=== PATIENT | female | born 1940 | race Caucasian/White ===

== ENCOUNTER 2017-01-11 16:53 | Inpatient (IN) | payer MEDICARE ==
[2017-01-12] MEDS ORDERED: Senokot S 8.6-50 MG TAB PO PRN ×2 (01:05→07:39)
[2017-01-12 05:18] LABS: Glucose 123 mg/dL (83-110)
[2017-01-12 05:29] LABS: INR-International Normal Ratio 1.2; Prothrombin Time 15.9 SEC (12.0-14.7)
[2017-01-12 05:47] LABS: Hemoglobin 8.7 g/dL (12.0-16.0); Platelet Count 119 thou/uL (130-400)
[2017-01-12] MEDS: Ipratropium Bromide 2.5 ml Neb NEB SCH ×4 (06:10→23:29)
[2017-01-12] MEDS ORDERED: Mometasone/Formoterol 60 PUFF AER INH SCH (07:00)
[2017-01-12] MEDS ORDERED: Potassium Chloride 20 MEQ TAB PO SCH (08:00)
[2017-01-12] MEDS ORDERED: Dextrose 5% in Water 1,000 ML IV PRN (08:18)
[2017-01-12] MEDS ORDERED: Insulin Regular 300 UNITS/3 ML VIAL SC PRN ×2 (08:18)
[2017-01-12] MEDS ORDERED: Dextrose 50% Abboject 50 ML SYRINGE SLOW IVP PRN (08:18)
[2017-01-12] MEDS: glipiZIDE 5 MG TAB PO SCH (08:22)
[2017-01-12] MEDS: Famotidine 20 MG TAB PO SCH ×2 (08:23→22:05)
[2017-01-12] MEDS: Docusate 100 MG CAP PO SCH (08:23)
[2017-01-12] MEDS: Furosemide 40 MG TAB PO SCH (08:23)
[2017-01-12] MEDS: Potassium Chloride 20 MEQ TAB PO SCH (08:24)
[2017-01-12] MEDS: Clopidogrel Bisulfate 75 MG TAB PO SCH (08:26)
[2017-01-12] MEDS ORDERED: Furosemide 40 MG TAB PO SCH (09:00)
[2017-01-12] MEDS ORDERED: NPH, Human Insulin Isophane 300 UNIT/3 ML VIAL SC SCH (09:00)
[2017-01-12] MEDS ORDERED: Non-Formulary Item 1 EACH (Fluticasone/Salmeterol [Advair Diskus 250/50] 2 INH) IH SCH (09:00)
[2017-01-12] MEDS ORDERED: Famotidine 20 MG TAB PO SCH (09:00)
[2017-01-12] MEDS ORDERED: Non-Formulary Item 1 EACH (Docusate Sodium [Docusate Sodium] 100 MG) PO SCH (09:00)
[2017-01-12] MEDS ORDERED: Non-Formulary Item 1 EACH (Cholecalciferol (Vitamin D3) [Vitamin D] 2,000 UNIT) PO SCH (09:00)
[2017-01-12] MEDS ORDERED: Spiriva 18 MCG CAP (Box of 5 Caps) INH SCH (09:00)
[2017-01-12] MEDS: traMADol HCl 50 MG TAB PO PRN (13:19)
[2017-01-12] MEDS: NPH, Human Insulin Isophane 300 UNIT/3 ML VIAL SC SCH (17:21)
[2017-01-12] MEDS: Warfarin Sodium 1 MG TAB PO SCH (17:55)
[2017-01-12] MEDS: Mometasone/Formoterol 60 PUFF AER INH SCH (19:32)
[2017-01-13] MEDS: Ipratropium Bromide 2.5 ml Neb NEB SCH ×4 (05:58→22:59)
[2017-01-13] MEDS: Mometasone/Formoterol 60 PUFF AER INH SCH ×2 (06:00→18:33)
[2017-01-13 06:02] LABS: INR-International Normal Ratio 1.1; Prothrombin Time 14.9 SEC (12.0-14.7)
[2017-01-13] MEDS: glipiZIDE 5 MG TAB PO SCH (09:09)
[2017-01-13] MEDS: NPH, Human Insulin Isophane 300 UNIT/3 ML VIAL SC SCH ×2 (09:17→17:26)
[2017-01-13] MEDS: Famotidine 20 MG TAB PO SCH ×2 (09:18→21:15)
[2017-01-13] MEDS: Furosemide 40 MG TAB PO SCH (09:18)
[2017-01-13] MEDS: Docusate 100 MG CAP PO SCH (09:19)
[2017-01-13] MEDS: Potassium Chloride 20 MEQ TAB PO SCH (09:19)
[2017-01-13] MEDS: Clopidogrel Bisulfate 75 MG TAB PO SCH (09:20)
[2017-01-13] MEDS ORDERED: Warfarin Sodium 3 MG TAB PO SCH (17:00)
[2017-01-13] MEDS ORDERED: Warfarin Sodium 1 MG TAB PO SCH (17:00)
[2017-01-13] MEDS: Acetaminophen 325 MG TAB PO PRN (21:14)
[2017-01-13] MEDS: diphenhydrAMINE HCl 25 MG CAP PO PRN (21:15)
[2017-01-14] MEDS: Mometasone/Formoterol 60 PUFF AER INH SCH ×2 (06:09→17:56)
[2017-01-14] MEDS: Ipratropium Bromide 2.5 ml Neb NEB SCH ×4 (06:10→23:31)
[2017-01-14 06:28] LABS: INR-International Normal Ratio 1.2; Prothrombin Time 15.6 SEC (12.0-14.7)
[2017-01-14 06:45] LABS: Hemoglobin 8.9 g/dL (12.0-16.0); Platelet Count 122 thou/uL (130-400)
[2017-01-14] MEDS: NPH, Human Insulin Isophane 300 UNIT/3 ML VIAL SC SCH ×2 (09:12→17:40)
[2017-01-14] MEDS: Potassium Chloride 20 MEQ TAB PO SCH (09:13)
[2017-01-14] MEDS: Docusate 100 MG CAP PO SCH (09:13)
[2017-01-14] MEDS: glipiZIDE 5 MG TAB PO SCH (09:14)
[2017-01-14] MEDS: Clopidogrel Bisulfate 75 MG TAB PO SCH (09:14)
[2017-01-14] MEDS: Furosemide 40 MG TAB PO SCH (09:14)
[2017-01-14] MEDS: Famotidine 20 MG TAB PO SCH ×2 (09:14→20:32)
[2017-01-14] MEDS: traMADol HCl 50 MG TAB PO PRN (10:56)
[2017-01-14] MEDS: Warfarin Sodium 1 MG TAB PO SCH (17:46)
[2017-01-14] MEDS ORDERED: WARFARIN SODIUM 1.5 MG PO SCH (18:00)
[2017-01-14] MEDS: diphenhydrAMINE HCl 25 MG CAP PO PRN (20:31)
[2017-01-14] MEDS: Acetaminophen 325 MG TAB PO PRN (20:32)
[2017-01-15] MEDS: Mometasone/Formoterol 60 PUFF AER INH SCH ×2 (05:43→18:47)
[2017-01-15] MEDS: Ipratropium Bromide 2.5 ml Neb NEB SCH ×3 (05:45→17:24)
[2017-01-15 06:28] LABS: INR-International Normal Ratio 1.1; Prothrombin Time 14.4 SEC (12.0-14.7)
[2017-01-15] MEDS: NPH, Human Insulin Isophane 300 UNIT/3 ML VIAL SC SCH ×2 (08:18→17:29)
[2017-01-15] MEDS: Clopidogrel Bisulfate 75 MG TAB PO SCH (08:23)
[2017-01-15] MEDS: Furosemide 40 MG TAB PO SCH (08:24)
[2017-01-15] MEDS: Docusate 100 MG CAP PO SCH (08:24)
[2017-01-15] MEDS: Famotidine 20 MG TAB PO SCH ×2 (08:24→21:07)
[2017-01-15] MEDS: Potassium Chloride 20 MEQ TAB PO SCH (08:25)
[2017-01-15] MEDS: glipiZIDE 5 MG TAB PO SCH (08:25)
[2017-01-15] MEDS: Warfarin Sodium 3 MG TAB PO SCH (17:19)
[2017-01-15] MEDS: diphenhydrAMINE HCl 25 MG CAP PO PRN (21:07)
[2017-01-15] MEDS: Acetaminophen 325 MG TAB PO PRN (21:07)
[2017-01-16] MEDS: Ipratropium Bromide 2.5 ml Neb NEB SCH ×5 (00:23→23:51)
[2017-01-16] MEDS: Mometasone/Formoterol 60 PUFF AER INH SCH ×2 (05:57→18:30)
[2017-01-16 06:27] LABS: INR-International Normal Ratio 1.2; Prothrombin Time 15.8 SEC (12.0-14.7)
[2017-01-16 06:32] LABS: Hemoglobin 8.7 g/dL (12.0-16.0); Platelet Count 133 thou/uL (130-400)
[2017-01-16] MEDS: NPH, Human Insulin Isophane 300 UNIT/3 ML VIAL SC SCH ×2 (08:33→18:29)
[2017-01-16] MEDS: Potassium Chloride 20 MEQ TAB PO SCH (08:36)
[2017-01-16] MEDS: Clopidogrel Bisulfate 75 MG TAB PO SCH (08:37)
[2017-01-16] MEDS: Famotidine 20 MG TAB PO SCH ×2 (08:37→20:33)
[2017-01-16] MEDS: Furosemide 40 MG TAB PO SCH (08:38)
[2017-01-16] MEDS: Docusate 100 MG CAP PO SCH (08:38)
[2017-01-16] MEDS: traMADol HCl 50 MG TAB PO PRN (09:17)
[2017-01-16] MEDS ORDERED: Loperamide HCl 2 MG CAP PO PRN (13:54)
[2017-01-16 16:44] LABS: Red Blood Cell (RBC) Count 3.31 mill/uL (4.20-5.40)
[2017-01-16] MEDS: Warfarin Sodium 3 MG TAB PO SCH (17:24)
[2017-01-16] MEDS: Acetaminophen 325 MG TAB PO PRN (20:33)
[2017-01-16] MEDS: diphenhydrAMINE HCl 25 MG CAP PO PRN (20:33)
[2017-01-16] MEDS: Loperamide HCl 2 MG CAP PO PRN (20:34)
[2017-01-17] MEDS: traMADol HCl 50 MG TAB PO PRN (02:37)
[2017-01-17] MEDS: Loperamide HCl 2 MG CAP PO PRN ×2 (02:38→09:22)
[2017-01-17] MEDS: Mometasone/Formoterol 60 PUFF AER INH SCH ×2 (05:48→18:15)
[2017-01-17] MEDS: Ipratropium Bromide 2.5 ml Neb NEB SCH ×4 (05:53→23:13)
[2017-01-17 06:11] LABS: INR-International Normal Ratio 1.2; Prothrombin Time 15.7 SEC (12.0-14.7)
[2017-01-17 06:23] LABS: #Basophils 0.1 thou/uL (0.0-0.2); #Eosinphils 0.1 thou/uL (0.0-0.7); #Lymphocytes 0.8 thou/uL (1.20-3.40); #Monocytes 0.5 thou/uL (0.11-0.59); %Basophils 1.4 % (0.0-1.0); %Eosinophils 2.6 % (0.0-10.0); %Lymphocytes 14.9 % (21.0-51.0); %Monocytes 9.4 % (0.0-10.0); %Neutrophils 71.8 % (42.0-75.0); Hemoglobin 9.2 g/dL (12.0-16.0); Mean Corpuscular Hemoglobin 27.6 pg (27.0-31.0); Mean Corpuscular Volume 92.1 fl (81.0-99.0); Mean Platelet Volume 6.9 fL (7.4-10.4); Platelet Count 139 thou/uL (130-400); RBC Distribution Width 16.6 % (11.5-14.5); Red Blood Cell (RBC) Count 3.31 mill/uL (4.20-5.40); White Blood Cell (WBC) Count 5.6 thou/uL (4.8-10.8)
[2017-01-17 07:02] LABS: ALT (SGPT) 6 U/L (0-55); AST (SGOT) 14 U/L (5-34); Albumin 3.1 g/dL (3.4-4.8); Alkaline Phosphatase 69 U/L (40-150); Anion Gap 12 mmol/L (10-20); BUN (Urea Nitrogen) 21 mg/dL (9.8-20.1); Bilirubin, Total 1.1 mg/dL (0.2-1.2); Calc. Creatinine Clearance 66 mL/min (70-130); Calcium 9.5 mg/dL (7.8-10.44); Carbon Dioxide 22 mmol/L (23-31); Chloride 114 mmol/L (98-107); Estimated GFR-MDRD 43; Globulin 2.8 g/dL (2.4-3.5); Glucose 93 mg/dL (83-110); Potassium 4.1 mmol/L (3.5-5.1); Protein, Total 5.9 g/dL (5.8-8.1); Sodium 144 mmol/L (136-145)
[2017-01-17] MEDS: NPH, Human Insulin Isophane 300 UNIT/3 ML VIAL SC SCH ×2 (08:47→16:42)
[2017-01-17] MEDS: Docusate 100 MG CAP PO SCH (08:49)
[2017-01-17] MEDS: Clopidogrel Bisulfate 75 MG TAB PO SCH (08:50)
[2017-01-17] MEDS: Furosemide 40 MG TAB PO SCH (08:50)
[2017-01-17] MEDS: Potassium Chloride 20 MEQ TAB PO SCH (08:51)
[2017-01-17] MEDS: Famotidine 20 MG TAB PO SCH ×2 (09:23→21:55)
[2017-01-17 12:29] VITALS: BMI 35.9
[2017-01-17] MEDS: Warfarin Sodium 3 MG TAB PO SCH (17:15)
[2017-01-17] MEDS: metroNIDAZOLE 250 MG TAB PO SCH (21:55)
[2017-01-17] MEDS: diphenhydrAMINE HCl 25 MG CAP PO PRN (23:18)
[2017-01-18] MEDS: Ipratropium Bromide 2.5 ml Neb NEB SCH ×3 (06:21→17:28)
[2017-01-18] MEDS: metroNIDAZOLE 250 MG TAB PO SCH ×3 (06:21→22:05)
[2017-01-18] MEDS: Mometasone/Formoterol 60 PUFF AER INH SCH ×2 (06:24→17:29)
[2017-01-18 06:27] LABS: Hemoglobin 9.1 g/dL (12.0-16.0); INR-International Normal Ratio 1.4; Platelet Count 134 thou/uL (130-400); Prothrombin Time 17.5 SEC (12.0-14.7)
[2017-01-18] MEDS: Potassium Chloride 20 MEQ TAB PO SCH (09:00)
[2017-01-18] MEDS: Clopidogrel Bisulfate 75 MG TAB PO SCH (10:08)
[2017-01-18] MEDS: Famotidine 20 MG TAB PO SCH ×2 (10:08→22:05)
[2017-01-18] MEDS: Docusate 100 MG CAP PO SCH (10:09)
[2017-01-18] MEDS: Furosemide 40 MG TAB PO SCH (10:09)
[2017-01-18] MEDS: NPH, Human Insulin Isophane 300 UNIT/3 ML VIAL SC SCH ×2 (12:36→17:27)
[2017-01-18] MEDS: Warfarin Sodium 3 MG TAB PO SCH (17:27)
[2017-01-19] MEDS: Ipratropium Bromide 2.5 ml Neb NEB SCH ×5 (00:12→23:46)
[2017-01-19] MEDS: metroNIDAZOLE 250 MG TAB PO SCH ×3 (06:17→21:02)
[2017-01-19] MEDS: Mometasone/Formoterol 60 PUFF AER INH SCH ×2 (06:18→18:59)
[2017-01-19 06:38] LABS: INR-International Normal Ratio 1.4; Prothrombin Time 17.4 SEC (12.0-14.7)
[2017-01-19 09:45] LABS: Anion Gap 14 mmol/L (10-20); BUN (Urea Nitrogen) 22 mg/dL (9.8-20.1); Calc. Creatinine Clearance 58 mL/min (70-130); Calcium 9.5 mg/dL (7.8-10.44); Carbon Dioxide 17 mmol/L (23-31); Chloride 115 mmol/L (98-107); Estimated GFR-MDRD 37; Glucose 126 mg/dL (83-110); Potassium 4.2 mmol/L (3.5-5.1); Sodium 142 mmol/L (136-145)
[2017-01-19 10:06] LABS: Platelet Count 111 thou/uL (130-400); White Blood Cell (WBC) Count 5.7 thou/uL (4.8-10.8)
[2017-01-19] MEDS: Famotidine 20 MG TAB PO SCH ×2 (10:12→21:02)
[2017-01-19] MEDS: Clopidogrel Bisulfate 75 MG TAB PO SCH (10:12)
[2017-01-19] MEDS: Furosemide 40 MG TAB PO SCH (10:13)
[2017-01-19] MEDS: Potassium Chloride 20 MEQ TAB PO SCH (10:13)
[2017-01-19 10:17] LABS: Hemoglobin 8.9 g/dL (12.0-16.0); Mean Corpuscular HGB CONC 31.1 g/dL (32.0-36.0); Mean Corpuscular Hemoglobin 28.2 pg (27.0-31.0); Mean Corpuscular Volume 90.8 fl (81.0-99.0); Mean Platelet Volume 5.9 fL (7.4-10.4); RBC Distribution Width 16.3 % (11.5-14.5); Red Blood Cell (RBC) Count 3.14 mill/uL (4.20-5.40)
[2017-01-19 10:18] LABS: #Basophils 0.1 thou/uL (0.0-0.2); #Eosinphils 0.2 thou/uL (0.0-0.7); #Monocytes 0.5 thou/uL (0.11-0.59); #Neutrophils 3.4 thou/uL (1.40-6.50); %Eosinophils 3.6 % (0.0-10.0); %Lymphocytes 19.3 % (21.0-51.0); %Monocytes 9.5 % (0.0-10.0); %Neutrophils 66.6 % (42.0-75.0)
[2017-01-19 10:30] LABS: Anisocytosis SLIGHT = 6-15 cells (100X) (0-5/hpf); MDiff Complete? YES; PLT Morphology Comment Appears Decreased
[2017-01-19] MEDS: NPH, Human Insulin Isophane 300 UNIT/3 ML VIAL SC SCH ×2 (11:20→18:59)
[2017-01-19] MEDS: Docusate 100 MG CAP PO SCH (11:21)
[2017-01-19] MEDS: Warfarin Sodium 2 MG TAB PO SCH (17:42)
[2017-01-19] MEDS: diphenhydrAMINE HCl 25 MG CAP PO PRN (21:02)
[2017-01-20 05:36] LABS: Anion Gap 10 mmol/L (10-20); BUN (Urea Nitrogen) 24 mg/dL (9.8-20.1); Calc. Creatinine Clearance 62 mL/min (70-130); Calcium 9.5 mg/dL (7.8-10.44); Carbon Dioxide 21 mmol/L (23-31); Chloride 113 mmol/L (98-107); Estimated GFR-MDRD 40; Glucose 102 mg/dL (83-110); Potassium 4.2 mmol/L (3.5-5.1); Sodium 140 mmol/L (136-145)
[2017-01-20 05:45] LABS: INR-International Normal Ratio 1.7; Prothrombin Time 20.2 SEC (12.0-14.7)
[2017-01-20 05:54] LABS: Platelet Count 117 thou/uL (130-400)
[2017-01-20] MEDS: metroNIDAZOLE 250 MG TAB PO SCH ×3 (06:11→23:02)
[2017-01-20] MEDS: Ipratropium Bromide 2.5 ml Neb NEB SCH ×4 (06:12→23:02)
[2017-01-20] MEDS: Mometasone/Formoterol 60 PUFF AER INH SCH ×2 (06:16→20:51)
[2017-01-20] MEDS: NPH, Human Insulin Isophane 300 UNIT/3 ML VIAL SC SCH ×2 (08:49→17:38)
[2017-01-20] MEDS: Furosemide 40 MG TAB PO SCH (08:51)
[2017-01-20] MEDS: Potassium Chloride 20 MEQ TAB PO SCH (08:51)
[2017-01-20] MEDS: Clopidogrel Bisulfate 75 MG TAB PO SCH (08:51)
[2017-01-20] MEDS: Docusate 100 MG CAP PO SCH (08:51)
[2017-01-20] MEDS: Famotidine 20 MG TAB PO SCH ×2 (08:51→20:52)
[2017-01-20] MEDS: Warfarin Sodium 3 MG TAB PO SCH (17:38)
[2017-01-21 05:33] LABS: INR-International Normal Ratio 1.6; Prothrombin Time 19.3 SEC (12.0-14.7)
[2017-01-21] MEDS: Ipratropium Bromide 2.5 ml Neb NEB SCH ×4 (05:53→23:49)
[2017-01-21] MEDS: metroNIDAZOLE 250 MG TAB PO SCH ×3 (05:55→21:43)
[2017-01-21] MEDS: Mometasone/Formoterol 60 PUFF AER INH SCH ×2 (06:00→21:44)
[2017-01-21] MEDS: NPH, Human Insulin Isophane 300 UNIT/3 ML VIAL SC SCH ×2 (08:46→17:38)
[2017-01-21] MEDS: Docusate 100 MG CAP PO SCH (08:47)
[2017-01-21] MEDS: Clopidogrel Bisulfate 75 MG TAB PO SCH (08:47)
[2017-01-21] MEDS: Furosemide 40 MG TAB PO SCH (08:47)
[2017-01-21] MEDS: Famotidine 20 MG TAB PO SCH ×2 (08:47→21:43)
[2017-01-21] MEDS: Potassium Chloride 20 MEQ TAB PO SCH (08:47)
[2017-01-21] MEDS: traMADol HCl 50 MG TAB PO PRN (10:14)
[2017-01-21] MEDS: Warfarin Sodium 3 MG TAB PO SCH (17:37)
[2017-01-22] MEDS: diphenhydrAMINE HCl 25 MG CAP PO PRN ×2 (02:45→23:39)
[2017-01-22] MEDS: Ipratropium Bromide 2.5 ml Neb NEB SCH ×4 (05:07→23:39)
[2017-01-22] MEDS: metroNIDAZOLE 250 MG TAB PO SCH ×3 (05:07→21:01)
[2017-01-22 05:40] LABS: INR-International Normal Ratio 1.6; Prothrombin Time 19.3 SEC (12.0-14.7)
[2017-01-22] MEDS: Mometasone/Formoterol 60 PUFF AER INH SCH ×2 (07:13→19:16)
[2017-01-22] MEDS: Clopidogrel Bisulfate 75 MG TAB PO SCH (09:19)
[2017-01-22] MEDS: Famotidine 20 MG TAB PO SCH ×2 (09:19→20:59)
[2017-01-22] MEDS: Furosemide 40 MG TAB PO SCH (09:19)
[2017-01-22] MEDS: Potassium Chloride 20 MEQ TAB PO SCH (09:19)
[2017-01-22] MEDS: Docusate 100 MG CAP PO SCH (09:20)
[2017-01-22] MEDS: NPH, Human Insulin Isophane 300 UNIT/3 ML VIAL SC SCH ×2 (09:20→17:45)
[2017-01-22] MEDS: Warfarin Sodium 2 MG TAB PO SCH (17:23)
[2017-01-23 05:17] LABS: Hemoglobin 9.6 g/dL (12.0-16.0); Platelet Count 120 thou/uL (130-400)
[2017-01-23 05:43] LABS: INR-International Normal Ratio 1.6; Prothrombin Time 18.8 SEC (12.0-14.7)
[2017-01-23] MEDS: Ipratropium Bromide 2.5 ml Neb NEB SCH ×4 (06:05→23:25)
[2017-01-23] MEDS: metroNIDAZOLE 250 MG TAB PO SCH ×3 (06:07→23:24)
[2017-01-23] MEDS: Mometasone/Formoterol 60 PUFF AER INH SCH ×2 (06:08→19:00)
[2017-01-23] MEDS: NPH, Human Insulin Isophane 300 UNIT/3 ML VIAL SC SCH ×2 (09:41→18:56)
[2017-01-23] MEDS: Furosemide 40 MG TAB PO SCH (09:42)
[2017-01-23] MEDS: Clopidogrel Bisulfate 75 MG TAB PO SCH (09:43)
[2017-01-23] MEDS: Potassium Chloride 20 MEQ TAB PO SCH (09:43)
[2017-01-23] MEDS: Famotidine 20 MG TAB PO SCH ×2 (09:43→20:41)
[2017-01-23] MEDS: Docusate 100 MG CAP PO SCH (09:44)
[2017-01-23] MEDS: Warfarin Sodium 2 MG TAB PO SCH (18:57)
[2017-01-24] MEDS: diphenhydrAMINE HCl 25 MG CAP PO PRN (00:44)
[2017-01-24] MEDS: Ipratropium Bromide 2.5 ml Neb NEB SCH ×3 (05:14→17:21)
[2017-01-24] MEDS: metroNIDAZOLE 250 MG TAB PO SCH ×3 (05:16→22:20)
[2017-01-24 05:41] LABS: INR-International Normal Ratio 1.8; Prothrombin Time 21.2 SEC (12.0-14.7)
[2017-01-24] MEDS: Mometasone/Formoterol 60 PUFF AER INH SCH ×2 (06:20→19:29)
[2017-01-24] MEDS: NPH, Human Insulin Isophane 300 UNIT/3 ML VIAL SC SCH ×2 (09:22→19:30)
[2017-01-24] MEDS: Clopidogrel Bisulfate 75 MG TAB PO SCH (09:23)
[2017-01-24] MEDS: Docusate 100 MG CAP PO SCH ×2 (09:23→10:05)
[2017-01-24] MEDS: Potassium Chloride 20 MEQ TAB PO SCH (09:23)
[2017-01-24] MEDS: Famotidine 20 MG TAB PO SCH ×2 (09:24→22:20)
[2017-01-24] MEDS: Furosemide 40 MG TAB PO SCH ×2 (09:24→10:05)
[2017-01-24] MEDS: Warfarin Sodium 2 MG TAB PO SCH (16:48)
[2017-01-25] MEDS: Ipratropium Bromide 2.5 ml Neb NEB SCH ×5 (00:46→23:19)
[2017-01-25] MEDS: diphenhydrAMINE HCl 25 MG CAP PO PRN ×2 (01:23→23:21)
[2017-01-25 05:57] LABS: Prothrombin Time 23.1 SEC (12.0-14.7)
[2017-01-25] MEDS: metroNIDAZOLE 250 MG TAB PO SCH ×3 (06:02→22:00)
[2017-01-25] MEDS: Mometasone/Formoterol 60 PUFF AER INH SCH ×2 (06:03→19:05)
[2017-01-25 06:13] LABS: Hemoglobin 9.5 g/dL (12.0-16.0); Platelet Count 117 thou/uL (130-400)
[2017-01-25] MEDS: Potassium Chloride 20 MEQ TAB PO SCH (10:15)
[2017-01-25] MEDS: Clopidogrel Bisulfate 75 MG TAB PO SCH (10:15)
[2017-01-25] MEDS: Furosemide 40 MG TAB PO SCH (10:15)
[2017-01-25] MEDS: NPH, Human Insulin Isophane 300 UNIT/3 ML VIAL SC SCH ×2 (10:16→18:26)
[2017-01-25] MEDS: Famotidine 20 MG TAB PO SCH ×2 (10:16→21:59)
[2017-01-25] MEDS: Docusate 100 MG CAP PO SCH (12:36)
[2017-01-25] MEDS ORDERED: Warfarin Sodium 3 MG TAB PO SCH (14:41)
[2017-01-25] MEDS: Warfarin Sodium 3 MG TAB PO SCH (18:14)
[2017-01-25] MEDS: Acetaminophen 325 MG TAB PO PRN (23:21)
[2017-01-26 04:42] LABS: INR-International Normal Ratio 2.3; Prothrombin Time 24.9 SEC (12.0-14.7)
[2017-01-26] MEDS: metroNIDAZOLE 250 MG TAB PO SCH ×3 (06:36→22:10)
[2017-01-26] MEDS: Mometasone/Formoterol 60 PUFF AER INH SCH ×2 (06:37→19:24)
[2017-01-26] MEDS: Ipratropium Bromide 2.5 ml Neb NEB SCH ×3 (06:37→19:23)
[2017-01-26] MEDS: Potassium Chloride 20 MEQ TAB PO SCH (09:50)
[2017-01-26] MEDS: NPH, Human Insulin Isophane 300 UNIT/3 ML VIAL SC SCH ×2 (09:54→16:44)
[2017-01-26] MEDS: Docusate 100 MG CAP PO SCH (09:57)
[2017-01-26] MEDS: Clopidogrel Bisulfate 75 MG TAB PO SCH (09:57)
[2017-01-26] MEDS: Famotidine 20 MG TAB PO SCH ×2 (09:58→22:10)
[2017-01-26] MEDS: Furosemide 40 MG TAB PO SCH (09:58)
--- NOTE | 2017-01-26 15:55 | ULT ---
SOFT TISSUE ULTRASOUND OF THE RIGHT LOWER EXTREMITY: Date: 01/26/17 CLINICAL HISTORY: Hematoma. FINDINGS: Within the region of concern, there is a prominent region of altered echotexture within the soft tis kavita of the proximal right lower extremity. The length of the finding makes discrete measurement acqu isition difficult on the basis of this exam. No significant interval flow. IMPRESSION: Sonographic finding most consistent with a large, organizing hematoma of the right lower extremity. Correlate with physical exam and clinical assessment. Imaging follow-up may prove useful for documen tation of resolution. POS: OFF
[2017-01-26] MEDS: Warfarin Sodium 2 MG TAB PO SCH (16:41)
[2017-01-27] MEDS: Ipratropium Bromide 2.5 ml Neb NEB SCH ×4 (00:23→17:22)
[2017-01-27] MEDS: diphenhydrAMINE HCl 25 MG CAP PO PRN ×2 (00:38→21:26)
[2017-01-27] MEDS: Acetaminophen 325 MG TAB PO PRN ×2 (00:38→21:25)
[2017-01-27] MEDS: metroNIDAZOLE 250 MG TAB PO SCH ×3 (05:57→21:25)
[2017-01-27] MEDS: Mometasone/Formoterol 60 PUFF AER INH SCH ×2 (06:01→17:23)
[2017-01-27 06:51] LABS: INR-International Normal Ratio 2.5; Prothrombin Time 27.1 SEC (12.0-14.7)
[2017-01-27 06:54] LABS: Hemoglobin 9.6 g/dL (12.0-16.0); Platelet Count 131 thou/uL (130-400)
[2017-01-27] MEDS: Potassium Chloride 20 MEQ TAB PO SCH (10:10)
[2017-01-27] MEDS: Clopidogrel Bisulfate 75 MG TAB PO SCH (10:10)
[2017-01-27] MEDS: Furosemide 40 MG TAB PO SCH (10:10)
[2017-01-27] MEDS: Docusate 100 MG CAP PO SCH (10:11)
[2017-01-27] MEDS: Famotidine 20 MG TAB PO SCH ×2 (10:11→21:26)
[2017-01-27] MEDS: NPH, Human Insulin Isophane 300 UNIT/3 ML VIAL SC SCH ×2 (10:12→15:55)
[2017-01-27] MEDS: Warfarin Sodium 3 MG TAB PO SCH (15:47)
[2017-01-28] MEDS: Ipratropium Bromide 2.5 ml Neb NEB SCH ×5 (00:45→23:18)
[2017-01-28 06:30] LABS: INR-International Normal Ratio 3.3; Prothrombin Time 32.9 SEC (12.0-14.7)
[2017-01-28] MEDS: Mometasone/Formoterol 60 PUFF AER INH SCH ×2 (07:01→19:09)
[2017-01-28] MEDS: NPH, Human Insulin Isophane 300 UNIT/3 ML VIAL SC SCH ×2 (09:34→17:11)
[2017-01-28] MEDS: Clopidogrel Bisulfate 75 MG TAB PO SCH (09:43)
[2017-01-28] MEDS: Docusate 100 MG CAP PO SCH (09:44)
[2017-01-28] MEDS: Furosemide 40 MG TAB PO SCH (09:44)
[2017-01-28] MEDS: Famotidine 20 MG TAB PO SCH ×2 (09:44→21:07)
[2017-01-28] MEDS: Potassium Chloride 20 MEQ TAB PO SCH (09:45)
[2017-01-28] MEDS: Warfarin Sodium 3 MG TAB PO SCH (17:15)
[2017-01-28] MEDS: diphenhydrAMINE HCl 25 MG CAP PO PRN (23:02)
[2017-01-28] MEDS: Acetaminophen 325 MG TAB PO PRN (23:02)
[2017-01-29] MEDS: Ipratropium Bromide 2.5 ml Neb NEB SCH ×4 (06:37→23:28)
[2017-01-29 06:38] LABS: Hemoglobin 10.1 g/dL (12.0-16.0); Platelet Count 130 thou/uL (130-400)
[2017-01-29] MEDS: Mometasone/Formoterol 60 PUFF AER INH SCH ×2 (06:38→18:05)
[2017-01-29 06:41] LABS: INR-International Normal Ratio 3.1; Prothrombin Time 31.2 SEC (12.0-14.7)
[2017-01-29] MEDS: NPH, Human Insulin Isophane 300 UNIT/3 ML VIAL SC SCH ×2 (10:35→18:03)
[2017-01-29] MEDS: Clopidogrel Bisulfate 75 MG TAB PO SCH (10:36)
[2017-01-29] MEDS: Famotidine 20 MG TAB PO SCH ×2 (10:36→21:13)
[2017-01-29] MEDS: Furosemide 40 MG TAB PO SCH (10:37)
[2017-01-29] MEDS: Potassium Chloride 20 MEQ TAB PO SCH (10:37)
[2017-01-29] MEDS: Docusate 100 MG CAP PO SCH (10:38)
[2017-01-29] MEDS: Warfarin Sodium 3 MG TAB PO SCH (18:04)
[2017-01-29] MEDS: Acetaminophen 325 MG TAB PO PRN (23:46)
[2017-01-29] MEDS: diphenhydrAMINE HCl 25 MG CAP PO PRN (23:47)
[2017-01-30] MEDS: Ipratropium Bromide 2.5 ml Neb NEB SCH ×3 (06:25→17:36)
[2017-01-30] MEDS: Mometasone/Formoterol 60 PUFF AER INH SCH ×2 (06:28→17:37)
[2017-01-30 06:30] LABS: INR-International Normal Ratio 3.6; Prothrombin Time 35.1 SEC (12.0-14.7)
[2017-01-30] MEDS: NPH, Human Insulin Isophane 300 UNIT/3 ML VIAL SC SCH ×2 (09:15→21:00)
[2017-01-30] MEDS: Furosemide 40 MG TAB PO SCH (09:15)
[2017-01-30] MEDS: Famotidine 20 MG TAB PO SCH ×2 (09:15→21:31)
[2017-01-30] MEDS: Clopidogrel Bisulfate 75 MG TAB PO SCH (09:16)
[2017-01-30] MEDS: Docusate 100 MG CAP PO SCH (09:16)
[2017-01-30] MEDS: Potassium Chloride 20 MEQ TAB PO SCH (09:16)
[2017-01-30] MEDS: diphenhydrAMINE HCl 25 MG CAP PO PRN (21:30)
[2017-01-30] MEDS: Acetaminophen 325 MG TAB PO PRN (21:30)
[2017-01-31] MEDS: Ipratropium Bromide 2.5 ml Neb NEB SCH ×2 (00:51→06:06)
[2017-01-31] MEDS: Mometasone/Formoterol 60 PUFF AER INH SCH (06:11)
[2017-01-31 06:15] VITALS: BP 124/58
[2017-01-31 06:38] LABS: INR-International Normal Ratio 3.1; Prothrombin Time 31.2 SEC (12.0-14.7)
[2017-01-31 06:41] LABS: Hemoglobin 10.3 g/dL (12.0-16.0); Platelet Count 144 thou/uL (130-400)
[2017-01-31] MEDS: Furosemide 40 MG TAB PO SCH (09:52)
[2017-01-31] MEDS: NPH, Human Insulin Isophane 300 UNIT/3 ML VIAL SC SCH (09:52)
[2017-01-31] MEDS: Famotidine 20 MG TAB PO SCH (09:52)
[2017-01-31] MEDS: Potassium Chloride 20 MEQ TAB PO SCH (09:52)
[2017-01-31] MEDS: Clopidogrel Bisulfate 75 MG TAB PO SCH (09:53)
[2017-01-31] MEDS: Docusate 100 MG CAP PO SCH (09:53)
[2017-01-31 15:35] VITALS: TEMP 97.5
[2017-01-31] MEDS ORDERED: Warfarin Sodium 3 MG TAB PO SCH (17:00)
[2017-02-03] MEDS ORDERED: Warfarin Sodium 2 MG TAB PO SCH (17:00)
== END 2017-01-31 13:45 | disposition home health service (06) | DRG 949 ==
LOC: BURMED 18:13
PROVIDERS: ADMIT Family Medicine; ATTEND Family Medicine
DX: Z48.812 Encounter for surgical aftercare following surgery on the circulatory system (principal); I97.638 Postprocedural hematoma of a circulatory system organ or structure following other circulatory system procedure; A04.7 Enterocolitis due to Clostridium difficile; J96.11 Chronic respiratory failure with hypoxia; N18.4 Chronic kidney disease, stage 4 (severe); I50.30 Unspecified diastolic (congestive) heart failure; Z95.2 Presence of prosthetic heart valve; Z79.01 Long term (current) use of anticoagulants; G47.33 Obstructive sleep apnea (adult) (pediatric); J44.9 Chronic obstructive pulmonary disease, unspecified; E04.1 Nontoxic single thyroid nodule; Z87.891 Personal history of nicotine dependence; I48.0 Paroxysmal atrial fibrillation; E11.22 Type 2 diabetes mellitus with diabetic chronic kidney disease; I12.9 Hypertensive chronic kidney disease with stage 1 through stage 4 chronic kidney disease, or unspecified chronic kidney disease; Y83.8 Other surgical procedures as the cause of abnormal reaction of the patient, or of later complication, without mention of misadventure at the time of the procedure
CPT/HCPCS: 36415; 36416; 76882; 80048; 80053; 82947; 85014; 85018; 85025; 85041; 85048; 85049; 85610; 87015; 87045; 87046; 87324; 87449; 87899; 94640; 94664; G8978-GP-CJ; G8979-GP-CI; G8987-GO-CL; G8988-GO-CJ; J1610; J1815; J7644

== ENCOUNTER 2017-05-27 16:17 | Outpatient (CLI) | payer MEDICARE ==
[2017-05-27 17:02] LABS: Bilirubin Negative (Negative); Blood, Urine Trace (Negative); Clarity Cloudy (Clear); Glucose, Urine (Dipstick) Negative (Negative); Leukocyte Small (Negative); Nitrite Negative (Negative); Protein, Urine (Dipstick) 30 mg/dL (Neg-Trace); Urobilinogen 0.2 mg/dL (0.2-1.0)
[2017-05-27 17:37] LABS: RBC/HPF 0-3 HPF (0-3)
[2017-05-27 17:38] LABS: Bacteria/HPF 3+ HPF (None Seen); Crystals/HPF None Seen HPF (Negative); Hyaline Casts/LPF NONE SEEN LPF (0-3 Hyaline); Other Casts/LPF None Seen LPF (0-3 Hyaline); Oval Fat Bodies/HPF None Seen HPF (None Seen); Renal Epithelial None Seen HPF (0-3); Sperm/HPF None Seen HPF (None Seen); Squamous Epithelial 0-3 HPF (0-3); Transitional Epithelial NONE SEEN HPF (0-3); Trichomonas/HPF None Seen HPF (None Seen); Yeast-All Forms None Seen HPF (None Seen)
== END 2017-05-27 16:18 ==
LOC: HPCALD 16:17
PROVIDERS: ATTEND Family Medicine
DX: R10.9 Unspecified abdominal pain (principal)
CPT/HCPCS: 81001; 87086

== ENCOUNTER 2017-06-30 13:25 | Outpatient (CLI) | payer MEDICARE ==
[2017-06-30 13:40] LABS: INR-International Normal Ratio 1.6
[2017-06-30 13:43] LABS: Hemoglobin A1c 5.1 % (4.0-6.0)
== END 2017-06-30 13:26 | disposition home or self-care (01) ==
LOC: BURLABSP 13:25
PROVIDERS: ATTEND Family Medicine
DX: E11.22 Type 2 diabetes mellitus with diabetic chronic kidney disease (principal); E03.9 Hypothyroidism, unspecified; I48.0 Paroxysmal atrial fibrillation
CPT/HCPCS: 83036; 84443; 85610

== ENCOUNTER 2017-08-05 11:43 | Outpatient (CLI) | payer MEDICARE ==
[2017-08-05 12:02] LABS: INR-International Normal Ratio 2.6; Prothrombin Time 29.1 SEC (12.0-14.7)
== END 2017-08-05 11:44 | disposition home or self-care (01) ==
LOC: BURLAB 11:43
PROVIDERS: ATTEND Family Medicine
DX: I48.91 Unspecified atrial fibrillation (principal)
CPT/HCPCS: 85610

== ENCOUNTER 2017-09-05 13:03 | Inpatient (IN) | payer MEDICARE ==
[2017-09-05] MEDS ORDERED: Milk Of Magnesia 30 ML UDCUP PO PRN (17:29)
[2017-09-05] MEDS ORDERED: Loperamide HCl 2 MG CAP PO PRN (17:29)
[2017-09-05] MEDS ORDERED: Mag-Al 1200 mg/1200 mg/30 ML UDCUP PO PRN (17:29)
[2017-09-05] MEDS ORDERED: Guaifenesin DM 100-10/5 ML UDCUP PO PRN (17:29)
[2017-09-05] MEDS ORDERED: Ondansetron ODT 4 MG TAB PO PRN (17:29)
[2017-09-05] MEDS ORDERED: Bisacodyl 10 MG SUPP PR PRN (17:29)
[2017-09-05] MEDS ORDERED: Dextrose 5% in Water 1,000 ML IV PRN (17:34)
[2017-09-05] MEDS ORDERED: Dextrose 50% Abboject 50 ML SYRINGE SLOW IVP PRN (17:34)
[2017-09-05] MEDS ORDERED: HumaLOG 300 UNITS/3 ML VIAL SC PRN (17:34)
[2017-09-05 18:05] LABS: #Eosinphils 0.3 thou/uL (0.0-0.7); #Lymphocytes 0.3 thou/uL (1.20-3.40); #Monocytes 0.6 thou/uL (0.11-0.59); #Neutrophils 5.9 thou/uL (1.40-6.50); %Basophils 0.4 % (0.0-1.0); %Eosinophils 4.7 % (0.0-10.0); %Lymphocytes 4.1 % (21.0-51.0); %Monocytes 8.7 % (0.0-10.0); %Neutrophils 82.1 % (42.0-75.0); Hemoglobin 11.7 g/dL (12.0-16.0); Mean Corpuscular HGB CONC 32.7 g/dL (32.0-36.0); Mean Corpuscular Hemoglobin 30.1 pg (27.0-31.0); Mean Corpuscular Volume 92.3 fl (81.0-99.0); Mean Platelet Volume 7.9 fL (7.4-10.4); PLT Morphology Comment PATIENT HISTORY OF LOW PLATELET COUNT; Platelet Count 93 thou/uL (130-400); RBC Distribution Width 13.9 % (11.5-14.5); Red Blood Cell (RBC) Count 3.88 mill/uL (4.20-5.40); White Blood Cell (WBC) Count 7.2 thou/uL (4.8-10.8)
[2017-09-05 18:12] LABS: INR-International Normal Ratio 1.6; Prothrombin Time 19.8 SEC (12.0-14.7)
[2017-09-05 18:21] LABS: ALT (SGPT) 35 U/L (8-55); AST (SGOT) 33 U/L (5-34); Albumin 3.6 g/dL (3.4-4.8); Alkaline Phosphatase 104 U/L (40-150); Anion Gap 14 mmol/L (10-20); BUN (Urea Nitrogen) 39 mg/dL (9.8-20.1); Bilirubin, Total 0.8 mg/dL (0.2-1.2); Calc. Creatinine Clearance 25 mL/min (70-130); Calcium 10.3 mg/dL (7.8-10.44); Carbon Dioxide 21 mmol/L (23-31); Chloride 106 mmol/L (98-107); Estimated GFR-MDRD 18; Globulin 3.1 g/dL (2.4-3.5); Glucose 143 mg/dL (83-110); Potassium 4.6 mmol/L (3.5-5.1); Protein, Total 6.7 g/dL (6.0-8.3); Sodium 136 mmol/L (136-145)
[2017-09-05 18:24] LABS: MDiff Complete? YES
[2017-09-05] MEDS ORDERED: Docusate 100 MG CAP PO PRN (18:27)
[2017-09-05] MEDS ORDERED: Lorazepam 0.5 MG TAB PO PRN (18:27)
[2017-09-05] MEDS ORDERED: diphenhydrAMINE 25 MG CAP PO PRN (18:27)
[2017-09-05 18:38] VITALS: BMI 29.6
[2017-09-05] MEDS: HumaLOG 300 UNITS/3 ML VIAL SC PRN (18:39)
[2017-09-05] MEDS: Vancomycin HCl 750 MG in Sodium Chloride 0.9% 250 ML 250 ML IVPB SCH (18:44)
[2017-09-05] MEDS: Vancomycin HCl 500 MG in Sodium Chloride 0.9% 100 ML IVPB SCH (18:45)
[2017-09-05] MEDS ORDERED: [UNRECOGNIZED DRUG - REMARK] IVPB PRN (18:51)
[2017-09-05 19:43] LABS: Bilirubin Negative (Negative); Blood, Urine Trace (Negative); Clarity Clear (Clear); Glucose, Urine (Dipstick) Negative (Negative); Leukocyte Negative (Negative); Nitrite Negative (Negative); Protein, Urine (Dipstick) Negative (Neg-Trace); Urobilinogen 0.2 mg/dL (0.2-1.0)
[2017-09-05 19:51] LABS: Bacteria/HPF 2+ HPF (None Seen); Crystals/HPF None Seen HPF (Negative); Hyaline Casts/LPF NONE SEEN LPF (0-3 Hyaline); Other Casts/LPF None Seen LPF (0-3 Hyaline); Oval Fat Bodies/HPF None Seen HPF (None Seen); RBC/HPF 0-3 HPF (0-3); Renal Epithelial None Seen HPF (0-3); Sperm/HPF None Seen HPF (None Seen); Squamous Epithelial 0-3 HPF (0-3); Transitional Epithelial NONE SEEN HPF (0-3); Trichomonas/HPF None Seen HPF (None Seen); WBC/HPF 0-3 HPF (0-3); Yeast-All Forms None Seen HPF (None Seen)
[2017-09-05] MEDS: Famotidine 20 MG TAB PO SCH (20:49)
[2017-09-05] MEDS: Ipratropium Bromide 2.5 ml Neb NEB SCH (20:53)
[2017-09-05] MEDS: diphenhydrAMINE 25 MG CAP PO SCH (20:54)
--- NOTE | 2017-09-05 21:03 | RAD ---
CHEST TWO VIEWS: Date: 09-05-17 Comparison: December and February, FINDINGS: The appearance of the chest is fairly similar. Areas of streaking from the meagan bilaterally, particu larly on the right are constant on all films and presumed to be scar. Cardiomegaly is present but th ere is no clear congestive change. Arterial sclerotic changes is seen in the aorta. Prominence aroun d the left hilar region is presumed to be pulmonary artery and it has not changed either. There are no effusions. IMPRESSION: Cardiomegaly, arterial sclerosis and chronic parenchymal changes. No acute findings. No evidence of CHF. POS: HOME
[2017-09-06] MEDS: Ipratropium Bromide 2.5 ml Neb NEB SCH ×4 (01:54→18:26)
[2017-09-06 06:00] LABS: INR-International Normal Ratio 1.6; Prothrombin Time 19.4 SEC (12.0-14.7)
[2017-09-06 06:23] LABS: Potassium 4.3 mmol/L (3.5-5.1); Sodium 137 mmol/L (136-145)
[2017-09-06 06:24] LABS: BUN (Urea Nitrogen) 38 mg/dL (9.8-20.1); Calc. Creatinine Clearance 28 mL/min (70-130); Carbon Dioxide 21 mmol/L (23-31); Chloride 108 mmol/L (98-107); Estimated GFR-MDRD 20
[2017-09-06 06:25] LABS: Calcium 9.9 mg/dL (7.8-10.44); Glucose 116 mg/dL (83-110)
[2017-09-06 06:26] LABS: Anion Gap 12 mmol/L (10-20)
[2017-09-06 07:10] LABS: Hemoglobin 10.4 g/dL (12.0-16.0); Mean Corpuscular HGB CONC 32.5 g/dL (32.0-36.0); Mean Corpuscular Volume 92.4 fL (81.0-99.0); Red Blood Cell (RBC) Count 3.46 mill/uL (4.20-5.40); White Blood Cell (WBC) Count 6.1 thou/uL (4.8-10.8)
[2017-09-06 07:11] LABS: #Eosinphils 0.4 thou/uL (0.0-0.7); #Monocytes 0.6 thou/uL (0.11-0.59); #Neutrophils 4.6 thou/uL (1.40-6.50); %Basophils 0.7 % (0.0-1.0); %Eosinophils 6.4 % (0.0-10.0); %Lymphocytes 6.8 % (21.0-51.0); %Monocytes 10.5 % (0.0-10.0); %Neutrophils 75.5 % (42.0-75.0); MDiff Complete? YES; Manual Diff?? NO; Mean Platelet Volume 7.8 fL (7.4-10.4); Platelet Count 86 thou/uL (130-400); RBC Distribution Width 13.5 % (11.5-14.5)
[2017-09-06] MEDS ORDERED: NPH, Human Insulin Isophane 300 UNIT/3 ML VIAL SC SCH (07:30)
[2017-09-06 08:35] LABS: #Lymphocytes 0.4 thou/uL (1.20-3.40); PLT Morphology Comment PLTS DECREASED ON SLIDE
[2017-09-06] MEDS ORDERED: Spironolactone 100 MG TAB PO SCH (09:00)
[2017-09-06] MEDS ORDERED: FLU VACC TS2017-18 (>65YR) 0.5 ML SYRINGE IM ONE (09:00)
[2017-09-06] MEDS: Furosemide 40 MG TAB PO SCH ×2 (09:29→13:27)
[2017-09-06] MEDS: Potassium Chloride 20 MEQ TAB PO SCH (09:29)
[2017-09-06] MEDS: Spironolactone 25 MG TAB PO SCH (09:33)
[2017-09-06] MEDS: Acetaminophen 325 MG TAB PO PRN (09:34)
[2017-09-06] MEDS: Mometasone/Formoterol 60 PUFF AER INH SCH (09:37)
[2017-09-06] MEDS: Famotidine 20 MG TAB PO SCH (10:10)
[2017-09-06] MEDS ORDERED: Docusate 100 MG CAP PO PRN (10:33)
[2017-09-06] MEDS: Enoxaparin Sodium 30 MG/0.3 ML SYRINGE SC SCH (10:34)
[2017-09-06] MEDS ORDERED: diphenhydrAMINE 25 MG CAP PO PRN (10:34)
[2017-09-06] MEDS ORDERED: Warfarin Sodium 3 MG TAB PO SCH (17:00)
[2017-09-06] MEDS: Warfarin Sodium 3 MG TAB PO SCH (17:35)
[2017-09-06] MEDS: Vancomycin HCl 750 MG in Sodium Chloride 0.9% 250 ML 250 ML IVPB SCH (17:38)
[2017-09-06] MEDS: NPH, Human Insulin Isophane 300 UNIT/3 ML VIAL SC SCH (17:44)
[2017-09-06] MEDS: Vancomycin HCl 500 MG in Sodium Chloride 0.9% 100 ML IVPB SCH (18:26)
[2017-09-06] MEDS: diphenhydrAMINE 25 MG CAP PO SCH (20:36)
[2017-09-07] MEDS: Ipratropium Bromide 2.5 ml Neb NEB SCH ×4 (01:10→18:11)
[2017-09-07] MEDS: Acetaminophen 325 MG TAB PO PRN (05:11)
[2017-09-07 06:15] LABS: INR-International Normal Ratio 1.4; Prothrombin Time 17.2 SEC (12.0-14.7)
[2017-09-07 06:21] LABS: Anion Gap 14 mmol/L (10-20); BUN (Urea Nitrogen) 37 mg/dL (9.8-20.1); Calc. Creatinine Clearance 27 mL/min (70-130); Calcium 10.4 mg/dL (7.8-10.44); Carbon Dioxide 21 mmol/L (23-31); Chloride 107 mmol/L (98-107); Estimated GFR-MDRD 19; Glucose 104 mg/dL (83-110); Potassium 4.5 mmol/L (3.5-5.1); Sodium 137 mmol/L (136-145)
[2017-09-07 06:41] LABS: #Basophils 0.1 thou/uL (0.0-0.2); #Eosinphils 0.5 thou/uL (0.0-0.7); #Lymphocytes 0.9 thou/uL (1.20-3.40); #Monocytes 0.7 thou/uL (0.11-0.59); #Neutrophils 2.5 thou/uL (1.40-6.50); %Basophils 1.6 % (0.0-1.0); %Eosinophils 11.4 % (0.0-10.0); %Lymphocytes 19.8 % (21.0-51.0); %Neutrophils 53.1 % (42.0-75.0); Hemoglobin 10.3 g/dL (12.0-16.0); Mean Corpuscular HGB CONC 32.6 g/dL (32.0-36.0); Mean Corpuscular Hemoglobin 30.3 pg (27.0-31.0); Mean Platelet Volume 7.4 fL (7.4-10.4); Platelet Count 100 thou/uL (130-400); RBC Distribution Width 13.9 % (11.5-14.5); Red Blood Cell (RBC) Count 3.41 mill/uL (4.20-5.40); White Blood Cell (WBC) Count 4.6 thou/uL (4.8-10.8)
[2017-09-07] MEDS: NPH, Human Insulin Isophane 300 UNIT/3 ML VIAL SC SCH ×2 (08:49→16:53)
[2017-09-07] MEDS: Mometasone/Formoterol 60 PUFF AER INH SCH (08:51)
[2017-09-07] MEDS: Spironolactone 25 MG TAB PO SCH (08:56)
[2017-09-07] MEDS: Potassium Chloride 20 MEQ TAB PO SCH (08:56)
[2017-09-07] MEDS: Floranex Packet PO SCH (08:56)
[2017-09-07] MEDS: Furosemide 40 MG TAB PO SCH ×2 (08:58→09:02)
[2017-09-07] MEDS: Enoxaparin Sodium 30 MG/0.3 ML SYRINGE SC SCH (09:02)
[2017-09-07] MEDS: WARFARIN PO SCH (10:52)
[2017-09-07] MEDS: HumaLOG 300 UNITS/3 ML VIAL SC PRN (16:36)
[2017-09-07] MEDS: Warfarin Sodium 3 MG TAB PO SCH (16:38)
[2017-09-07] MEDS: Vancomycin HCl 750 MG in Sodium Chloride 0.9% 250 ML 250 ML IVPB SCH (16:42)
[2017-09-07] MEDS: Vancomycin HCl 500 MG in Sodium Chloride 0.9% 100 ML IVPB SCH ×2 (16:53→18:08)
[2017-09-07] MEDS ORDERED: Warfarin Sodium 3 MG TAB PO SCH (17:00)
[2017-09-07] MEDS ORDERED: Warfarin Sodium 1.5 MG TAB PO SCH (17:00)
[2017-09-07] MEDS: diphenhydrAMINE 25 MG CAP PO SCH (20:38)
[2017-09-08] MEDS: Ipratropium Bromide 2.5 ml Neb NEB SCH ×2 (01:09→06:00)
[2017-09-08 05:56] LABS: INR-International Normal Ratio 1.3; Prothrombin Time 16.4 SEC (12.0-14.7)
[2017-09-08 06:07] LABS: Anion Gap 13 mmol/L (10-20); Calcium 10.8 mg/dL (7.8-10.44); Carbon Dioxide 22 mmol/L (23-31); Chloride 108 mmol/L (98-107); Potassium 4.4 mmol/L (3.5-5.1); Sodium 139 mmol/L (136-145)
[2017-09-08 06:19] LABS: BUN (Urea Nitrogen) 38 mg/dL (9.8-20.1); Calc. Creatinine Clearance 28 mL/min (70-130); Estimated GFR-MDRD 20; Glucose 100 mg/dL (83-110)
[2017-09-08 06:37] VITALS: BP 122/58; TEMP 98.1
[2017-09-08] MEDS: Spironolactone 25 MG TAB PO SCH (09:23)
[2017-09-08] MEDS: Furosemide 40 MG TAB PO SCH (09:23)
[2017-09-08] MEDS: Potassium Chloride 20 MEQ TAB PO SCH (09:23)
[2017-09-08] MEDS: Mometasone/Formoterol 60 PUFF AER INH SCH (09:24)
[2017-09-08] MEDS: Enoxaparin Sodium 30 MG/0.3 ML SYRINGE SC SCH (09:25)
[2017-09-08] MEDS: Floranex Packet PO SCH (09:25)
[2017-09-08] MEDS: NPH, Human Insulin Isophane 300 UNIT/3 ML VIAL SC SCH (09:27)
[2017-09-08] MEDS: WARFARIN PO SCH (09:48)
--- NOTE | 2017-09-08 10:12 | DIS ---
DATE OF TRANSFER: 09/08/2017 ADMISSION DIAGNOSES: 1. Multidrug resistant urinary tract infection, Enterococcus. 2. Acute kidney injury on chronic kidney disease stage 4. 3. Diabetes mellitus. 4. Atrial fibrillation with subtherapeutic INR. DISCHARGE DIAGNOSES: 1. Multidrug resistant infection, Enterococcus. 2. Acute kidney injury on chronic kidney disease stage 4. 3. Diabetes mellitus. 4. Atrial fibrillation with subtherapeutic INR. ATTENDING PHYSICIAN: Dr. Tamra Hernandez PROCEDURES: 1. Blood cultures x2 negative at 48 hours. 2. Urine culture from the date of admission showing Enterococcus faecium, sensitive to vancomycin, resistant to all oral agents. 3. Chemistry profile from the date of admission significant for BUN of 39 and creatinine of 2.59, w hich improved subsequently to 2.39 on the date of transfer. HISTORY AND PHYSICAL EXAMINATION: Please see typed report from the office from the day of admission . HOSPITAL COURSE: Ms. Monet is a 77-year-old female with past medical history of diastoli c heart failure, insulin-dependent diabetes, atrial fibrillation with a history of TAVR procedure wh o was having some confusion in the ambulatory setting per home health and a urinalysis with urine cu lture was performed which grew out Enterococcus faecalis which was resistant to all oral agents othe r than Macrobid. The patient had some acute kidney injury and thus the medication was contraindicat ed. Therefore, she was admitted for IV antibiotics. She was placed on vancomycin. Repeat urine cu lture grew out the same organism. Blood cultures were negative at 48 hours x2. The patient's acute kidney injury, improved with treatment of the urinary tract infection and also holding a p.m. dose of Lasix that she had taken at home chronically for diastolic congestive heart failure. She will be transferred to the swing bed to complete at least a 7-day course of IV antibiotics with a urine cul ture to be performed 2 days prior to her discharge to ensure complete clearance. Her mental status has been stable throughout her hospital admission. She is without nausea, vomiting, diarrhea. She was placed on Floranex for probiotic prophylaxis against antibiotic associated diarrhea and other in fection. History of atrial fibrillation. Her INR has been subtherapeutic. She was placed on Lovenox 30 mg s ubcu daily due to thrombocytopenia and subtherapeutic INR. Pharmacy is managing the warfarin, it maldonado s been adjusted with an increase to 5 mg daily today. We will continue to monitor this. History of insulin-dependent diabetes mellitus. Her Accu-Cheks have been monitored throughout her h ospital stay and have been stable throughout admission. We will continue Accu-Cheks q.a.c. and at b edtime and sliding scale and bedtime insulin correction protocol. DISPOSITION: Transfer to swing bed at [facility] with physical therapy and o ccupational therapy for strengthening due to deconditioning from her hospital stay. MEDICATIONS: 1. Floranex 1 gram p.o. daily. 2. Vitamin D3 2000 units p.o. daily. 3. Cardizem-CD 120 mg p.o. b.i.d. 4. Benadryl 25 mg p.o. at bedtime. 5. Lovenox 30 mg subcu daily. 6. Lasix 80 mg p.o. daily. 7. Atrovent 2.5 nebs q.6 hours p.r.n. 8. Dulera 2 puffs inhaled daily. 9. NPH 10 units subcutaneously b.i.d. 10. Pantoprazole 40 mg p.o. daily. 11. K-Dur 20 mEq p.o. q.a.m. 12. Spironolactone 100 mg p.o. daily. 13. Vancomycin 1250 mg IV q.24h. 14. Coumadin 5 mg daily. 15. Tylenol 650 mg p.o. q.4h. p.r.n. headache, fever, or pain. 16. Maalox 30 mL p.o. q.6. p.r.n. heartburn or indigestion. 17. Dulcolax 10 mg p.o. q.24 hours p.r.n. constipation. 18. Benadryl 25 mg p.o. q.6 hours p.r.n. allergies. 19. Colace 100 mg p.o. b.i.d. p.r.n. constipation. 20. Robitussin-DM 15 mL p.o. q.4h. p.r.n. cough. 21. Mild and bedtime Humalog insulin correction protocol. 22. DuoNeb 3 mL q.6 hours p.r.n. 23. Imodium 2 mg p.o. p.r.n. loose stool. 24. Ativan 0.5 mg p.o. q.6h. p.r.n. anxiety. 25. Milk of Magnesia 30 mL p.o. daily p.r.n. constipation. 26. Zofran ODT 4 mg p.o. q.6 hours p.r.n. nausea, vomiting. DISPOSITION: Per swing bed transfer/discharge with follow up with me in the clinic in approximatel y 7 days from discharge.
[2017-09-08] MEDS ORDERED: Warfarin Sodium 5 MG TAB PO SCH (17:00)
== END 2017-09-08 11:34 | disposition swing bed (61) | DRG 690 ==
LOC: BURMED 17:22
PROVIDERS: ADMIT Family Medicine; ATTEND Family Medicine
DX: N30.00 Acute cystitis without hematuria (principal); N18.4 Chronic kidney disease, stage 4 (severe); E11.22 Type 2 diabetes mellitus with diabetic chronic kidney disease; N17.9 Acute kidney failure, unspecified; I50.32 Chronic diastolic (congestive) heart failure; I48.91 Unspecified atrial fibrillation; I13.0 Hypertensive heart and chronic kidney disease with heart failure and stage 1 through stage 4 chronic kidney disease, or unspecified chronic kidney disease; B95.2 Enterococcus as the cause of diseases classified elsewhere; Z16.24 Resistance to multiple antibiotics; Z79.01 Long term (current) use of anticoagulants; Z79.4 Long term (current) use of insulin; Z23 Encounter for immunization; K21.9 Gastro-esophageal reflux disease without esophagitis; J44.9 Chronic obstructive pulmonary disease, unspecified; Z95.2 Presence of prosthetic heart valve; F41.9 Anxiety disorder, unspecified; K59.00 Constipation, unspecified
CPT/HCPCS: 36415; 36416; 71020; 80048; 80053; 81001; 83880; 85025; 85610; 87040; 87077; 87086; 87186; 94664; A4216; G8978-GP-CJ; G8979-GP-CI; G8987-GO-CK; G8988-GO-CJ; J1610; J1650; J1815; J3370; J7050; J7644

== ENCOUNTER 2017-09-08 12:05 | Inpatient (IN) | payer MEDICARE ==
[2017-09-08 12:37] VITALS: BMI 29.6
[2017-09-08] MEDS ORDERED: diphenhydrAMINE 25 MG CAP PO PRN (13:02)
[2017-09-08] MEDS ORDERED: Mag-Al Plus 1200 MG/1200 MG/120 MG/30 ML UDCUP PO PRN (13:03)
[2017-09-08] MEDS ORDERED: Bisacodyl 10 MG SUPP PR PRN (13:03)
[2017-09-08] MEDS ORDERED: Dextrose 5% in Water 1,000 ML IV PRN (13:05)
[2017-09-08] MEDS ORDERED: HumaLOG 300 UNITS/3 ML VIAL SC PRN (13:05)
[2017-09-08] MEDS ORDERED: Ondansetron ODT 4 MG TAB PO PRN (13:06)
[2017-09-08] MEDS ORDERED: Lorazepam 0.5 MG TAB PO PRN (13:07)
[2017-09-08] MEDS ORDERED: Loperamide HCl 2 MG CAP PO PRN (13:07)
[2017-09-08] MEDS ORDERED: Guaifenesin DM 100-10/5 ML UDCUP PO PRN (13:09)
[2017-09-08] MEDS ORDERED: Dextrose 50% Abboject 50 ML SYRINGE IVP SCH (13:15)
[2017-09-08] MEDS: Ipratropium Bromide 2.5 ml Neb NEB SCH ×2 (14:09→17:32)
[2017-09-08] MEDS: Warfarin Sodium 5 MG TAB PO SCH (17:29)
[2017-09-08] MEDS: Vancomycin HCl 750 MG in Sodium Chloride 0.9% 250 ML 250 ML IVPB SCH ×3 (17:31→20:52)
[2017-09-08] MEDS: Vancomycin HCl 500 MG in Sodium Chloride 0.9% 100 ML IVPB SCH ×3 (17:31→22:41)
[2017-09-08] MEDS: NPH, Human Insulin Isophane 300 UNIT/3 ML VIAL SC SCH (17:33)
[2017-09-08] MEDS: diphenhydrAMINE 25 MG CAP PO SCH (20:52)
[2017-09-08] MEDS: Docusate 100 MG CAP PO PRN (21:04)
[2017-09-09] MEDS: Ipratropium Bromide 2.5 ml Neb NEB SCH ×4 (01:05→17:30)
[2017-09-09 06:47] LABS: INR-International Normal Ratio 1.4; Prothrombin Time 17.5 SEC (12.0-14.7)
[2017-09-09 06:58] LABS: Hemoglobin 11.5 g/dL (12.0-16.0); Platelet Count 119 thou/uL (130-400)
[2017-09-09] MEDS: Spironolactone 25 MG TAB PO SCH (09:07)
[2017-09-09] MEDS: Floranex Packet PO SCH (09:08)
[2017-09-09] MEDS: Potassium Chloride 20 MEQ TAB PO SCH (09:08)
[2017-09-09] MEDS: Furosemide 40 MG TAB PO SCH (09:08)
[2017-09-09] MEDS: Mometasone/Formoterol 60 PUFF AER INH SCH (09:09)
[2017-09-09] MEDS: Enoxaparin Sodium 30 MG/0.3 ML SYRINGE SC SCH (09:10)
[2017-09-09] MEDS: NPH, Human Insulin Isophane 300 UNIT/3 ML VIAL SC SCH ×2 (09:23→17:27)
[2017-09-09] MEDS: Docusate 100 MG CAP PO PRN (16:12)
[2017-09-09] MEDS: Warfarin Sodium 5 MG TAB PO SCH (16:12)
[2017-09-09] MEDS: Vancomycin HCl 500 MG in Sodium Chloride 0.9% 100 ML IVPB SCH (20:46)
[2017-09-09] MEDS: Vancomycin HCl 750 MG in Sodium Chloride 0.9% 250 ML 250 ML IVPB SCH (20:47)
[2017-09-09] MEDS: diphenhydrAMINE 25 MG CAP PO SCH (20:48)
[2017-09-10] MEDS: Ipratropium Bromide 2.5 ml Neb NEB SCH ×4 (01:32→18:18)
[2017-09-10 06:10] LABS: INR-International Normal Ratio 1.6; Prothrombin Time 19.3 SEC (12.0-14.7)
[2017-09-10] MEDS: NPH, Human Insulin Isophane 300 UNIT/3 ML VIAL SC SCH ×2 (08:42→17:06)
[2017-09-10] MEDS: Furosemide 40 MG TAB PO SCH (08:45)
[2017-09-10] MEDS: Potassium Chloride 20 MEQ TAB PO SCH (08:51)
[2017-09-10] MEDS: Spironolactone 25 MG TAB PO SCH (08:51)
[2017-09-10] MEDS: Enoxaparin Sodium 30 MG/0.3 ML SYRINGE SC SCH (08:52)
[2017-09-10] MEDS: Floranex Packet PO SCH (08:53)
[2017-09-10] MEDS: Mometasone/Formoterol 60 PUFF AER INH SCH (08:57)
[2017-09-10] MEDS: Milk Of Magnesia 30 ML UDCUP PO PRN (09:50)
[2017-09-10] MEDS: Warfarin Sodium 5 MG TAB PO SCH (17:04)
[2017-09-10] MEDS: HumaLOG 300 UNITS/3 ML VIAL SC PRN (17:07)
[2017-09-10 20:37] LABS: Vancomycin, Trough 31.6 ug/mL
[2017-09-10] MEDS: Docusate 100 MG CAP PO PRN (20:55)
[2017-09-10] MEDS: diphenhydrAMINE 25 MG CAP PO SCH (20:55)
[2017-09-11] MEDS: Ipratropium Bromide 2.5 ml Neb NEB SCH ×4 (01:33→17:56)
[2017-09-11 06:21] LABS: Hemoglobin 11.3 g/dL (12.0-16.0); Platelet Count 121 thou/uL (130-400)
[2017-09-11 06:22] LABS: INR-International Normal Ratio 1.8; Prothrombin Time 21.5 SEC (12.0-14.7)
[2017-09-11 06:31] LABS: Anion Gap 13 mmol/L (10-20); BUN (Urea Nitrogen) 43 mg/dL (9.8-20.1); Calc. Creatinine Clearance 28 mL/min (70-130); Carbon Dioxide 24 mmol/L (23-31); Chloride 108 mmol/L (98-107); Estimated GFR-MDRD 20; Glucose 99 mg/dL (83-110); Potassium 4.7 mmol/L (3.5-5.1); Sodium 140 mmol/L (136-145)
[2017-09-11] MEDS: Floranex Packet PO SCH (08:25)
[2017-09-11] MEDS: Furosemide 40 MG TAB PO SCH (08:26)
[2017-09-11] MEDS: Spironolactone 25 MG TAB PO SCH (08:26)
[2017-09-11] MEDS: Enoxaparin Sodium 30 MG/0.3 ML SYRINGE SC SCH (08:27)
[2017-09-11] MEDS: Potassium Chloride 20 MEQ TAB PO SCH (08:27)
[2017-09-11] MEDS: Mometasone/Formoterol 60 PUFF AER INH SCH (08:29)
[2017-09-11] MEDS: NPH, Human Insulin Isophane 300 UNIT/3 ML VIAL SC SCH ×2 (08:37→17:54)
[2017-09-11] MEDS: Docusate 100 MG CAP PO PRN (16:33)
[2017-09-11] MEDS: Warfarin Sodium 5 MG TAB PO SCH (16:33)
[2017-09-11] MEDS: Milk Of Magnesia 30 ML UDCUP PO PRN (16:33)
[2017-09-11 20:31] LABS: Vancomycin, Random 27.1 ug/mL (See Comment)
[2017-09-11] MEDS: diphenhydrAMINE 25 MG CAP PO SCH (21:02)
[2017-09-12] MEDS: Ipratropium Bromide 2.5 ml Neb NEB SCH ×4 (01:08→18:32)
[2017-09-12 06:23] LABS: INR-International Normal Ratio 2.2; Prothrombin Time 24.9 SEC (12.0-14.7)
[2017-09-12] MEDS: Furosemide 40 MG TAB PO SCH (08:54)
[2017-09-12] MEDS: Spironolactone 25 MG TAB PO SCH (08:55)
[2017-09-12] MEDS: Floranex Packet PO SCH (08:56)
[2017-09-12] MEDS: Potassium Chloride 20 MEQ TAB PO SCH (08:56)
[2017-09-12] MEDS: NPH, Human Insulin Isophane 300 UNIT/3 ML VIAL SC SCH ×2 (08:56→18:01)
[2017-09-12] MEDS: Mometasone/Formoterol 60 PUFF AER INH SCH (09:00)
[2017-09-12] MEDS: Bisacodyl 5 MG TAB PO PRN (15:58)
[2017-09-12] MEDS: Warfarin Sodium 5 MG TAB PO SCH (18:00)
[2017-09-12 20:24] LABS: Vancomycin, Random 21.6 ug/mL (See Comment)
[2017-09-12] MEDS: Docusate 100 MG CAP PO SCH (21:14)
[2017-09-12] MEDS: diphenhydrAMINE 25 MG CAP PO SCH (21:14)
[2017-09-13] MEDS: Ipratropium Bromide 2.5 ml Neb NEB SCH ×4 (01:14→18:28)
[2017-09-13 06:22] LABS: Hemoglobin 11.3 g/dL (12.0-16.0); Platelet Count 126 thou/uL (130-400)
[2017-09-13 06:25] LABS: INR-International Normal Ratio 2.2; Prothrombin Time 25.3 SEC (12.0-14.7)
[2017-09-13] MEDS: NPH, Human Insulin Isophane 300 UNIT/3 ML VIAL SC SCH ×2 (08:30→17:39)
[2017-09-13] MEDS: Floranex Packet PO SCH (08:31)
[2017-09-13] MEDS: Furosemide 40 MG TAB PO SCH (08:32)
[2017-09-13] MEDS: Spironolactone 25 MG TAB PO SCH (08:32)
[2017-09-13] MEDS: Docusate 100 MG CAP PO SCH ×2 (08:33→20:03)
[2017-09-13] MEDS: Potassium Chloride 20 MEQ TAB PO SCH (08:33)
[2017-09-13] MEDS: Bisacodyl 5 MG TAB PO PRN (08:39)
[2017-09-13] MEDS: Mometasone/Formoterol 60 PUFF AER INH SCH (08:40)
[2017-09-13] MEDS: Cephalexin 250 MG CAP PO SCH ×2 (12:24→17:39)
[2017-09-13] MEDS: Warfarin Sodium 5 MG TAB PO SCH (17:39)
[2017-09-13] MEDS: diphenhydrAMINE 25 MG CAP PO SCH (20:03)
[2017-09-13] MEDS: Acetaminophen 325 MG TAB PO PRN (22:08)
[2017-09-14] MEDS: Cephalexin 250 MG CAP PO SCH ×4 (00:40→18:03)
[2017-09-14] MEDS: Ipratropium Bromide 2.5 ml Neb NEB SCH ×4 (00:52→18:36)
[2017-09-14] MEDS: Acetaminophen 325 MG TAB PO PRN ×2 (03:21→20:03)
[2017-09-14 06:22] LABS: INR-International Normal Ratio 3.1
[2017-09-14] MEDS: NPH, Human Insulin Isophane 300 UNIT/3 ML VIAL SC SCH ×2 (07:56→18:02)
[2017-09-14] MEDS: Spironolactone 25 MG TAB PO SCH (08:27)
[2017-09-14] MEDS: Furosemide 40 MG TAB PO SCH (08:27)
[2017-09-14] MEDS: Potassium Chloride 20 MEQ TAB PO SCH (08:29)
[2017-09-14] MEDS: Docusate 100 MG CAP PO SCH ×2 (08:30→20:04)
[2017-09-14] MEDS: Mometasone/Formoterol 60 PUFF AER INH SCH (08:30)
[2017-09-14] MEDS: Floranex Packet PO SCH (08:30)
[2017-09-14] MEDS: HumaLOG 300 UNITS/3 ML VIAL SC PRN (13:02)
[2017-09-14] MEDS: diphenhydrAMINE 25 MG CAP PO SCH (20:04)
[2017-09-14] MEDS ORDERED: Vancomycin HCl 1 GM in Sodium Chloride 0.9% 250 ML 250 ML IVPB SCH (23:00)
[2017-09-15] MEDS: Cephalexin 250 MG CAP PO SCH ×5 (00:14→23:38)
[2017-09-15] MEDS: Ipratropium Bromide 2.5 ml Neb NEB SCH ×5 (00:15→23:42)
[2017-09-15 05:44] LABS: Hemoglobin 11.3 g/dL (12.0-16.0); Platelet Count 98 thou/uL (130-400)
[2017-09-15 05:57] LABS: INR-International Normal Ratio 2.9; Prothrombin Time 31.4 SEC (12.0-14.7)
[2017-09-15] MEDS: Mometasone/Formoterol 60 PUFF AER INH SCH (08:32)
[2017-09-15] MEDS: Spironolactone 25 MG TAB PO SCH (08:33)
[2017-09-15] MEDS: Potassium Chloride 20 MEQ TAB PO SCH (08:33)
[2017-09-15] MEDS: Furosemide 40 MG TAB PO SCH (08:34)
[2017-09-15] MEDS: Floranex Packet PO SCH (08:34)
[2017-09-15] MEDS: Docusate 100 MG CAP PO SCH ×2 (08:34→21:47)
[2017-09-15] MEDS: NPH, Human Insulin Isophane 300 UNIT/3 ML VIAL SC SCH ×2 (08:45→16:41)
[2017-09-15] MEDS ORDERED: Warfarin Sodium 2 MG TAB PO SCH (17:00)
[2017-09-15] MEDS ORDERED: Warfarin Sodium 3 MG TAB PO SCH (17:00)
[2017-09-15] MEDS: diphenhydrAMINE 25 MG CAP PO SCH (21:47)
[2017-09-16] MEDS: Acetaminophen 325 MG TAB PO PRN (04:25)
[2017-09-16 05:42] LABS: INR-International Normal Ratio 2.4; Prothrombin Time 27.5 SEC (12.0-14.7)
[2017-09-16] MEDS: Cephalexin 250 MG CAP PO SCH (06:18)
[2017-09-16] MEDS: Ipratropium Bromide 2.5 ml Neb NEB SCH (06:18)
[2017-09-16 06:42] VITALS: BP 112/53; TEMP 98.5
[2017-09-16] MEDS: Mometasone/Formoterol 60 PUFF AER INH SCH (07:50)
[2017-09-16] MEDS: NPH, Human Insulin Isophane 300 UNIT/3 ML VIAL SC SCH (07:52)
[2017-09-16] MEDS: Floranex Packet PO SCH (07:53)
[2017-09-16] MEDS: Spironolactone 25 MG TAB PO SCH (07:54)
[2017-09-16] MEDS: Potassium Chloride 20 MEQ TAB PO SCH (07:54)
[2017-09-16] MEDS: Furosemide 40 MG TAB PO SCH (07:56)
[2017-09-16] MEDS: Docusate 100 MG CAP PO SCH (07:56)
== END 2017-09-16 11:20 | disposition home health service (06) | DRG 690 ==
LOC: BURMED 12:05
PROVIDERS: ADMIT Family Medicine; ATTEND Family Medicine
DX: N39.0 Urinary tract infection, site not specified (principal); N18.4 Chronic kidney disease, stage 4 (severe); E11.22 Type 2 diabetes mellitus with diabetic chronic kidney disease; N17.9 Acute kidney failure, unspecified; I48.0 Paroxysmal atrial fibrillation; I13.0 Hypertensive heart and chronic kidney disease with heart failure and stage 1 through stage 4 chronic kidney disease, or unspecified chronic kidney disease; I50.32 Chronic diastolic (congestive) heart failure; J44.9 Chronic obstructive pulmonary disease, unspecified; B95.2 Enterococcus as the cause of diseases classified elsewhere; G47.33 Obstructive sleep apnea (adult) (pediatric); B96.20 Unspecified Escherichia coli [E. coli] as the cause of diseases classified elsewhere; K21.9 Gastro-esophageal reflux disease without esophagitis; Z87.891 Personal history of nicotine dependence; Z16.24 Resistance to multiple antibiotics
CPT/HCPCS: 36415; 36416; 80048; 80202; 85014; 85018; 85049; 85610; 87077; 87086; 87186; 94664; A4216; G8978-GP-CJ; G8979-GP-CI; G8987-GO-CL; G8988-GO-CJ; J1650; J1815; J3370; J7050; J7644

== ENCOUNTER 2019-01-11 15:57 | Inpatient (IN) | payer MEDICARE ==
[2019-01-11] MEDS ORDERED: Senokot S 8.6-50 MG TAB PO PRN (16:41)
[2019-01-11] MEDS ORDERED: Acetaminophen 325 MG TAB PO PRN (16:41)
[2019-01-11] MEDS ORDERED: HYDROcodone/Acetaminophen 5/325 mg Tablet PO PRN ×2 (16:41)
[2019-01-11] MEDS ORDERED: Ondansetron ODT 4 MG TAB PO PRN (16:41)
[2019-01-11] MEDS ORDERED: Dextrose 50% Abboject 50 ML SYRINGE SLOW IVP PRN (16:41)
[2019-01-11] MEDS ORDERED: Bisacodyl 5 MG TAB PO PRN (16:41)
[2019-01-11] MEDS ORDERED: Dextrose 5% in Water 1,000 ML IV PRN (16:41)
[2019-01-11] MEDS ORDERED: HumaLOG 300 UNITS/3 ML VIAL SC PRN ×2 (16:50)
[2019-01-11 17:40] LABS: #Eosinphils 0.6 thou/uL (0.0-0.7); #Lymphocytes 0.3 thou/uL (1.20-3.40); #Monocytes 0.6 thou/uL (0.11-0.59); #Neutrophils 8.8 thou/uL (1.40-6.50); %Basophils 0.4 % (0.0-1.0); %Eosinophils 5.6 % (0.0-10.0); %Monocytes 6.2 % (0.0-10.0); %Neutrophils 84.8 % (42.0-75.0); Hemoglobin 12.9 g/dL (12.0-16.0); Mean Corpuscular HGB CONC 34.1 g/dL (32.0-36.0); Mean Corpuscular Hemoglobin 29.7 pg (27.0-31.0); Mean Corpuscular Volume 87.2 fL (78.0-98.0); Mean Platelet Volume 7.3 fL (7.4-10.4); Platelet Count 129 thou/uL (130-400); RBC Distribution Width 12.9 % (11.5-14.5); Red Blood Cell (RBC) Count 4.35 mill/uL (4.20-5.40); White Blood Cell (WBC) Count 10.4 thou/uL (4.8-10.8)
[2019-01-11 18:10] LABS: ALT (SGPT) 12 U/L (8-55); AST (SGOT) 16 U/L (5-34); Albumin 3.8 g/dL (3.4-4.8); Alkaline Phosphatase 72 U/L (40-150); Anion Gap 14 mmol/L (10-20); BUN (Urea Nitrogen) 49 mg/dL (9.8-20.1); Bilirubin, Total 0.8 mg/dL (0.2-1.2); Calc. Creatinine Clearance 0 mL/min (70-130); Calcium 11.6 mg/dL (7.8-10.44); Carbon Dioxide 23 mmol/L (23-31); Chloride 101 mmol/L (98-107); Estimated GFR-MDRD 15; Globulin 3.1 g/dL (2.4-3.5); Glucose 149 mg/dL (83-110); Potassium 4.9 mmol/L (3.5-5.1); Protein, Total 6.9 g/dL (6.0-8.3); Sodium 133 mmol/L (136-145)
--- NOTE | 2019-01-11 20:18 | RAD ---
PORTABLE CHEST: Date: 01/11/19 An AP portable film at 1727 hours is compared with the 09/05/17 study. Cardiomegaly is about the same as before. There does appear to be some mild congestion of the vessels . There may be a small left pleural effusion. There is some linear streaking in the left mid to lower lung. Some of this is scarring and some could be atelectasis. Calcification is seen in the aortic ar ch. There is a little thickening of the minor fissure medially, which is similar to the prior study. IMPRESSION: Mild vascular congestion. POS: HOME
[2019-01-11] MEDS ORDERED: Sodium Chloride 0.9% 10 ML ONE (20:22)
[2019-01-11] MEDS: cefTRIAXone\\ROCEPHIN 1 GM in Sodium Chloride 0.9% 100 ML IVPB SCH (20:47)
[2019-01-11] MEDS ORDERED: Vancomycin HCl 1.25 GM in Sodium Chloride 0.9% 250 ML 250 ML IVPB SCH (21:00)
[2019-01-11] MEDS ORDERED: Milk Of Magnesia 30 ML UDCUP PO PRN (21:27)
[2019-01-11] MEDS ORDERED: Furosemide 40 MG/4 ML VIAL SLOW IVP SCH (21:45)
[2019-01-11] MEDS ORDERED: Vancomycin HCl 1 GM in Sodium Chloride 0.9% 250 ML 250 ML IVPB SCH (22:15)
[2019-01-11] MEDS ORDERED: Warfarin Sodium 3 MG TAB PO SCH (22:15)
[2019-01-12] MEDS: Ipratropium Bromide 2.5 ml Neb NEB SCH ×4 (01:11→18:50)
[2019-01-12] MEDS: Mometasone/Formoterol 60 PUFF AER INH SCH ×2 (06:04→18:48)
[2019-01-12 06:06] LABS: #Basophils 0.1 thou/uL (0.0-0.2); #Eosinphils 0.6 thou/uL (0.0-0.7); #Lymphocytes 0.4 thou/uL (1.20-3.40); #Monocytes 0.7 thou/uL (0.11-0.59); #Neutrophils 7.9 thou/uL (1.40-6.50); %Basophils 0.6 % (0.0-1.0); %Eosinophils 6.1 % (0.0-10.0); %Lymphocytes 4.5 % (21.0-51.0); %Monocytes 7.6 % (0.0-10.0); %Neutrophils 81.2 % (42.0-75.0); Hemoglobin 11.5 g/dL (12.0-16.0); Mean Corpuscular HGB CONC 32.8 g/dL (32.0-36.0); Mean Corpuscular Hemoglobin 28.4 pg (27.0-31.0); Mean Corpuscular Volume 86.7 fL (78.0-98.0); Mean Platelet Volume 8.3 fL (7.4-10.4); Platelet Count 128 thou/uL (130-400); Red Blood Cell (RBC) Count 4.05 mill/uL (4.20-5.40); White Blood Cell (WBC) Count 9.8 thou/uL (4.8-10.8)
[2019-01-12 06:10] LABS: Prothrombin Time 41.7 SEC (12.0-14.7)
[2019-01-12 06:13] LABS: INR-International Normal Ratio 4.4
[2019-01-12 06:14] LABS: Anion Gap 15 mmol/L (10-20); BUN (Urea Nitrogen) 46 mg/dL (9.8-20.1); Calc. Creatinine Clearance 24 mL/min (70-130); Calcium 10.9 mg/dL (7.8-10.44); Carbon Dioxide 18 mmol/L (23-31); Chloride 105 mmol/L (98-107); Estimated GFR-MDRD 17; Glucose 141 mg/dL (83-110); Potassium 4.9 mmol/L (3.5-5.1); Sodium 133 mmol/L (136-145)
[2019-01-12] MEDS ORDERED: Calcitriol 0.25 MCG CAP PO SCH ×2 (09:00→17:00)
[2019-01-12] MEDS ORDERED: Non-Formulary Item 1 EACH (Tiotropium Bromide [Spiriva Respimat] 2 INH) IH SCH (09:00)
[2019-01-12] MEDS ORDERED: VANCOMYCIN IVPB PRN (09:09)
[2019-01-12] MEDS ORDERED: WARFARIN PO PRN (09:10)
[2019-01-12] MEDS: NPH, Human Insulin Isophane 300 UNIT/3 ML VIAL SC SCH ×2 (09:37→17:51)
[2019-01-12] MEDS: Spironolactone 25 MG TAB PO SCH (09:38)
[2019-01-12] MEDS: Potassium Chloride 20 MEQ TAB PO SCH (09:44)
[2019-01-12] MEDS: Famotidine 20 MG TAB PO SCH (09:45)
[2019-01-12] MEDS ORDERED: Furosemide 40 MG/4 ML VIAL SLOW IVP SCH (14:30)
[2019-01-12] MEDS ORDERED: Warfarin Sodium 3 MG TAB PO SCH ×2 (17:00)
[2019-01-12] MEDS: Calcitriol 0.25 MCG CAP PO SCH (17:39)
[2019-01-12] MEDS: cefTRIAXone\\ROCEPHIN 1 GM in Sodium Chloride 0.9% 100 ML IVPB SCH (17:52)
--- NOTE | 2019-01-12 20:46 | HP ---
CC: Cellulitis HISTORY OF PRESENT ILLNESS: Ms. Monet is a 79-year-old white female, who presented in the ambulatory setting today for a followup of bilateteral lower extremity cellulitis. I saw her two days ago for this and gave her a gram of Rocephin in the office that day. I also prescribed Keflex and she has been taking that. I recommended hospital admission at that time, but the patient declined so I ordered outpatient PT for wound care due to weeping leg wounds and OT for help with lymphedema management. Today, she denied any increase in pain. She was still having some leakage of her lower extremity wounds, but they were not as bad as they were previously. She has a draining wound on the left leg. However, the redness had worsened so I recommended proceeding with admission today. She has a history of diastolic congestive heart failure and is followed by Dr. Bass. Her last consult notes are from April of 2018 before she had her pacemaker placement for bradycardia. She was to have an updated echocardiogram in early 2018. The last EF I can find is from a heart cath 04/30 that showed normal LVEF of 60%. She has a history of CKD stage 4, followed by Dr. Flanagan, last appointment on December 21. Had lab performed and her GFR was stable with a creatinine of 2.58. He did have her take an extra dose of Lasix that day due to swelling, a one time extra dose. Her daughter, who is her caregiver, called him back last week due to still retaining fluid and a draining left leg wound, and he instructed her to take 2 Lasix and 2 potassiums in the morning, and an extra dose of Lasix in the afternoon for one week, but no longer than that. She reports that the redness and swelling resolved; however, the fluid continued to drain and the redness recurred. She went back to her usual dose of Lasix and potassium 1 week ago, which is 2 Lasix and 1 potassium in the morning only. She does have a history of hyperparathyroidism and he commented also that her intact PTH was still high, but he was unable to increase the calcitriol due to hypercalcemia and that Sensipar was too expensive for them. Therefore, he emphasized a low calcium diet. He stopped her vitamin D back July, and she has only been taking the calcitriol every other day. She does have a history of atrial fibrillation and her last INR was over a month ago. She reports compliance with warfarin therapy, and denied bleeding at the time of her visit. She has been admitted directly to the floor for IV antibiotic and treatment of cellulitis of bilateral lower extremities, [id number] diastolic congestive heart failure, physical deconditioning, stage 4 chronic kidney disease, and type-2 diabetes. PAST MEDICAL HISTORY: 1. Chronic obstructive sleep apnea on O2 at HS. 2. Paroxysmal atrial fibrillation. 3. COPD. 4. Type-2 diabetes. 5. Chronic kidney disease, stage 4. 6. Chronic respiratory failure, on O2 at bedtime. 7. Severe aortic stenosis, status post transaortic valve replacement. 8. Diastolic congestive heart failure, pLVEF 60% 04/30. 9. Subclinical hyperthyroidism and retrosternal thyroid nodules in June 2017 with radionuclide scan recommended. Family has not wanted to proceed with further treatment or workup. 10. Secondary hyperparathyroidism. 11. Hypercalcemia indirectly due to chronic kidney disease. 12. Chronic constipation. 13. GERD. 14. Intermittent Thrombocytopenia. 15. Bradycardia s/p pacemaker. 16. CAD. PAST SURGICAL HISTORY: 1. TAVR procedure. 2. Pacemaker in May of 2018. FAMILY HISTORY: Both mother and father are , and the patient has 2 children, which are currently alive. One of her daughters also has diabetes. SOCIAL HISTORY: She is . The patient lives with her daughter, Katya Monet, who is her primary caregiver, and she also has another daughter, Toya Galvan, who lives in town and provides transportation for them. She does not have home health at this time. She was a former smoker, but it was 10 to 15 years ago before she last smoked cigarettes. She denies any alcohol use. No illicit drug use. ALLERGIES: NO KNOWN DRUG ALLERGIES. MEDICATIONS: 1. Breo Ellipta 200/25 mcg 1 inhalation daily. 2. Calcitriol 0.25 mcg p.o. every other day. 3. Humalog per sliding scale a.c. p.r.n. 4. Pepcid 20 mg p.o. b.i.d. 5. Diltiazem 120 mg p.o. b.i.d. 6. Regular strength Tylenol 650 mg p.o. q.4 hours p.r.n. 7. Dulcolax 10 mg NM q.24 hours p.r.n. 8. Docusate sodium 100 mg p.o. b.i.d. p.r.n. 9. Lasix 80 mg p.o. q.a.m. 10. DuoNeb 3 mL nebulized q.6 hours p.r.n. 11. Robitussin DM 15 mL p.o. q.4 hours p.r.n. 12. Lorazepam 0.5 mg p.o. q.6 hours p.r.n. 13. Milk of magnesia 30 mL p.o. daily p.r.n. 14. Imodium 2 mg p.o. p.r.n. 15. NPH 5 units subcu b.i.d. with meals. 16. Zofran ODT 4 mg p.o. q.6 hours p.r.n. 17. Potassium chloride ER 20 mEq by mouth once daily. 18. Spironolactone 100 mg p.o. daily. 19. Spiriva Respimat 2.5 mcg/actuation aerosol solution 2 puffs inhaled once daily. 20. Warfarin 3 mg daily at 1700 hours with one and half tabs Tuesday, Tuesday, Tuesday, Tuesday, Tuesday, and one tab on Tuesday and . 21. Diphenhydramine 25 mg p.o. at bedtime. ROS: GEN: Denies fever, chills, malaise. Primarily w/c bound but can stand for short periods of time and transfer with 1 person assist. EYES: Denies vision changes or occular pain. ENT: Denies rhinorrhea, sore throat, ear pain. CV: Denies chest pain, orthopnea above her baseline, PND, palpitations. RESP: Denies dyspnea on exertion above her baseline, cough, hemoptysis, wheezing. GI: Denies diarrhea, abdominal pain, melena or hematochezia. Chronic constipation and GERD. HEM: Skin tag sustained getting out of car in parking lot earlier today for clinic appointment to dorsum of right hand; otherwise, no bleeding. LYMPH: As per HPI. The patient has chronic bilateral lower extremity edema at baseline. NEURO: Generalized weakness but none above her baseline. No numbness, paresthesias, slurred speech or alteration of mental status. PSYCH: Denies depression or anxiety. PHYSICAL EXAMINATION: VITAL SIGNS: Height 68 inches, temp 98.9, blood pressure 128/75, respirations 18, and heart rate 84. GENERAL: Well nourished, in no acute distress. Alert and oriented. In w/c. HEENT: Eyes; pupils are equally round and reactive to light and accommodation. Extraocular muscles intact bilaterally. Head is normocephalic, atraumatic. EACs clear bilaterally. Tympanic membranes are clear, nondistorted bilaterally. No erythema, no effusion of the middle ear, reflective to light. Nose; nares patent without discharge, turbinates nonboggy and nonerythematous, no maxillary sinus tenderness. NECK/THYROID: Supple without lymphadenopathy, thyromegaly, or carotid bruits. CARDIOVASCULAR: Regular rate and rhythm. Normal S1, S2. No clicks, rubs, or gallops. 2/6 systolic ejection murmur best heard at left upper sternal border. RESPIRATORY: Clear to auscultation with good air entry bilaterally. No crackles. No wheezes or increased work of breathing. GASTROINTESTINAL: Positive bowel sounds in all 4 quadrants. Soft, nontender, and nondistended. No masses, guarding, or rebound tenderness. EXTREMITIES: No cyanosis or clubbing. 2 mm pitting/weeping edema with bright erythema bilaterally to the knees. SKIN: Without rash otherwise. Skin tear to the dorsum of the right hand has been re- approximated and is no longer bleeding. NEUROLOGICAL: Cranial nerves 2 through 12 grossly intact with no focal deficits , but generalized weakness noted. ASSESSMENT AND PLAN: 1. Cellulitis, bilateral lower extremities. The patient has failed outpatient trial of Rocephin/cephalexin. We will admit the patient to the floor and get a CBC, blood culture x2, and continue the Rocephin. We will add vancomycin for MRSA coverage. If her renal function is able to handle it, we will transition her to an oral agent once improvement is noted. We will get a wound care evaluation. We will instruct the patient to elevate the lower extremities above the level of the heart bilaterally. 2. [id number] diastolic congestive heart failure. We will get a baseline chest x-ray and B-type natriuretic peptide. We will place her on home Lasix and may consider gentle IV diuresis based on her renal function and her imaging results. I expect her BNP to be falsely elevated partially secondary to renal dysfunction. We will see if she has a prior baseline for comparison when it comes back. We will place the patient on 1500 mL fluid restriction, no sodium diet and weigh her daily. 3. Physical deconditioning. We will order a physical therapy and occupational therapy evaluation and have them treat accordingly. 4. Chronic kidney disease, stage 4. We will have the pharmacy renally dose all her medications. We will provide gentle diuresis as needed. We will get a CMP. 5. Type-2 diabetes with diabetic chronic kidney disease. We will perform Accu- Cheks q.a.c. and at bedtime with Humalog correction mild and bedtime sliding scale. We will order ADA 1800-kilocalorie diet. 6. Chronic atrial fibrillation. RRR today. We will monitor PT and INR per protocol and continue her warfarin. Will have pharmacy adjust for goal of 2-3. 7. Gastroesophageal reflux disease. We will place the patient on Pepcid b.i.d. as long as her platelets are okay. 8. Constipation. We will order senna, Colace, and Dulcolax p.r.n. 9. Thyroid Mass. The patient and family have declined further workup of this problem at this time. 10. Essential hypertension. Her goal blood pressure while is hospitalized is less than 140/90. We will monitor. 11. Chronic obstructive pulmonary disease. We can order DuoNebs p.r.n., place on her home regimen. 12. Hyperthyroidism. The patient has declined further workup of this issue. 13. Secondary hyperparathyroidism. We will continue her calcitriol as ordered. 14. Thrombocytopenia. We will check a CBC and look at her platelet count. 15. H/o aortic valve replacement. Again, will continue ant-coagulation. 15. Prophylaxis. Pepcid/warfarin. 16. Code status. Patient desires DNAR status. Job ID: [id number] [facility]
[2019-01-12] MEDS: diphenhydrAMINE 25 MG CAP PO SCH (22:01)
[2019-01-12] MEDS: Vancomycin HCl 500 MG in Sodium Chloride 0.9% 100 ML IVPB SCH (22:04)
[2019-01-13] MEDS: Ipratropium Bromide 2.5 ml Neb NEB SCH ×4 (00:18→18:48)
[2019-01-13 05:45] LABS: #Basophils 0.1 thou/uL (0.0-0.2); #Eosinphils 0.7 thou/uL (0.0-0.7); #Lymphocytes 0.7 thou/uL (1.20-3.40); #Monocytes 0.7 thou/uL (0.11-0.59); #Neutrophils 5.6 thou/uL (1.40-6.50); %Basophils 0.7 % (0.0-1.0); %Eosinophils 8.8 % (0.0-10.0); %Lymphocytes 8.6 % (21.0-51.0); %Monocytes 8.7 % (0.0-10.0); %Neutrophils 73.2 % (42.0-75.0); Hemoglobin 11.8 g/dL (12.0-16.0); Mean Corpuscular HGB CONC 33.6 g/dL (32.0-36.0); Mean Corpuscular Hemoglobin 29.3 pg (27.0-31.0); Mean Corpuscular Volume 87.4 fL (78.0-98.0); Mean Platelet Volume 7.4 fL (7.4-10.4); Platelet Count 130 thou/uL (130-400); Red Blood Cell (RBC) Count 4.04 mill/uL (4.20-5.40); White Blood Cell (WBC) Count 7.7 thou/uL (4.8-10.8)
[2019-01-13 05:47] LABS: INR-International Normal Ratio 3.3; Prothrombin Time 33.2 SEC (12.0-14.7)
[2019-01-13 05:50] LABS: Anion Gap 15 mmol/L (10-20); BUN (Urea Nitrogen) 46 mg/dL (9.8-20.1); Calc. Creatinine Clearance 25 mL/min (70-130); Calcium 11.2 mg/dL (7.8-10.44); Carbon Dioxide 19 mmol/L (23-31); Chloride 106 mmol/L (98-107); Estimated GFR-MDRD 17; Glucose 109 mg/dL (83-110); Potassium 4.8 mmol/L (3.5-5.1); Sodium 135 mmol/L (136-145)
[2019-01-13] MEDS: Mometasone/Formoterol 60 PUFF AER INH SCH ×2 (06:06→18:46)
--- NOTE | 2019-01-13 08:46 | RAD ---
CHEST 1 VIEW: Date: 01/13/19 HISTORY: CHF. Cellulitis. Follow-up. COMPARISON: 01/11/19. FINDINGS: Cardiac silhouette is magnified, enlarged, and partially obscured by patchy bibasilar infiltrates and left pleural fluid. Mediastinum is midline with a single lead left subclavian cardiac pacer. Patchy bilateral perihilar infiltrates are similar in appearance to the previous exam. No evidence of pneumo thorax. IMPRESSION: Radiographic findings of pulmonary edema are stable. POS: [facility]
[2019-01-13] MEDS: NPH, Human Insulin Isophane 300 UNIT/3 ML VIAL SC SCH ×2 (09:11→17:47)
[2019-01-13] MEDS: Spironolactone 25 MG TAB PO SCH (09:13)
[2019-01-13] MEDS: Potassium Chloride 20 MEQ TAB PO SCH (09:13)
[2019-01-13] MEDS: Famotidine 20 MG TAB PO SCH (09:13)
[2019-01-13] MEDS ORDERED: Furosemide 40 MG/4 ML VIAL SLOW IVP SCH (10:45)
[2019-01-13] MEDS ORDERED: Warfarin Sodium 3 MG TAB PO SCH (17:00)
[2019-01-13] MEDS: cefTRIAXone\\ROCEPHIN 1 GM in Sodium Chloride 0.9% 100 ML IVPB SCH (18:57)
[2019-01-13] MEDS: diphenhydrAMINE 25 MG CAP PO SCH (21:10)
[2019-01-13 21:17] LABS: Vancomycin, Trough 10.3 ug/mL
[2019-01-13] MEDS: Vancomycin HCl 500 MG in Sodium Chloride 0.9% 100 ML IVPB SCH (22:21)
[2019-01-14] MEDS: Ipratropium Bromide 2.5 ml Neb NEB SCH ×4 (00:59→18:40)
[2019-01-14 05:36] LABS: #Eosinphils 0.6 thou/uL (0.0-0.7); #Lymphocytes 0.6 thou/uL (1.20-3.40); #Monocytes 0.7 thou/uL (0.11-0.59); #Neutrophils 4.3 thou/uL (1.40-6.50); %Basophils 0.8 % (0.0-1.0); %Eosinophils 10.1 % (0.0-10.0); %Lymphocytes 9.7 % (21.0-51.0); %Monocytes 11.4 % (0.0-10.0); %Neutrophils 68.1 % (42.0-75.0); Hemoglobin 10.9 g/dL (12.0-16.0); Mean Corpuscular Hemoglobin 29.3 pg (27.0-31.0); Mean Corpuscular Volume 86.2 fL (78.0-98.0); Mean Platelet Volume 7.5 fL (7.4-10.4); Platelet Count 125 thou/uL (130-400); Red Blood Cell (RBC) Count 3.71 mill/uL (4.20-5.40); White Blood Cell (WBC) Count 6.3 thou/uL (4.8-10.8)
[2019-01-14 05:45] LABS: INR-International Normal Ratio 2.3; Prothrombin Time 25.3 SEC (12.0-14.7)
[2019-01-14 05:47] LABS: Anion Gap 13 mmol/L (10-20); BUN (Urea Nitrogen) 49 mg/dL (9.8-20.1); Calc. Creatinine Clearance 22 mL/min (70-130); Calcium 11.2 mg/dL (7.8-10.44); Carbon Dioxide 21 mmol/L (23-31); Chloride 105 mmol/L (98-107); Estimated GFR-MDRD 15; Glucose 124 mg/dL (83-110); Potassium 4.7 mmol/L (3.5-5.1); Sodium 134 mmol/L (136-145)
[2019-01-14] MEDS: Mometasone/Formoterol 60 PUFF AER INH SCH ×2 (06:07→18:37)
[2019-01-14] MEDS: Spironolactone 25 MG TAB PO SCH (09:13)
[2019-01-14] MEDS: Famotidine 20 MG TAB PO SCH (09:13)
[2019-01-14] MEDS: Potassium Chloride 20 MEQ TAB PO SCH (09:14)
[2019-01-14] MEDS: NPH, Human Insulin Isophane 300 UNIT/3 ML VIAL SC SCH ×2 (09:15→17:19)
[2019-01-14] MEDS ORDERED: Furosemide 40 MG TAB PO SCH (11:00)
[2019-01-14] MEDS: Calcitriol 0.25 MCG CAP PO SCH (17:12)
[2019-01-14] MEDS: Warfarin Sodium 2.5 MG TAB PO SCH (17:13)
[2019-01-14] MEDS: cefTRIAXone\\ROCEPHIN 1 GM in Sodium Chloride 0.9% 100 ML IVPB SCH (18:22)
[2019-01-14] MEDS: diphenhydrAMINE 25 MG CAP PO SCH (20:52)
[2019-01-14] MEDS: Vancomycin HCl 500 MG in Sodium Chloride 0.9% 100 ML IVPB SCH (21:38)
[2019-01-15] MEDS: Ipratropium Bromide 2.5 ml Neb NEB SCH ×4 (03:21→21:05)
[2019-01-15 05:09] LABS: #Basophils 0.1 thou/uL (0.0-0.2); #Eosinphils 0.6 thou/uL (0.0-0.7); #Lymphocytes 0.8 thou/uL (1.20-3.40); #Monocytes 0.8 thou/uL (0.11-0.59); #Neutrophils 3.3 thou/uL (1.40-6.50); %Basophils 1.2 % (0.0-1.0); %Eosinophils 11.4 % (0.0-10.0); %Lymphocytes 14.8 % (21.0-51.0); %Monocytes 13.7 % (0.0-10.0); %Neutrophils 58.9 % (42.0-75.0); Hemoglobin 10.7 g/dL (12.0-16.0); Mean Corpuscular HGB CONC 33.1 g/dL (32.0-36.0); Mean Corpuscular Hemoglobin 28.8 pg (27.0-31.0); Mean Corpuscular Volume 87.1 fL (78.0-98.0); Platelet Count 134 thou/uL (130-400); RBC Distribution Width 13.2 % (11.5-14.5); White Blood Cell (WBC) Count 5.6 thou/uL (4.8-10.8)
[2019-01-15 05:17] LABS: Anion Gap 13 mmol/L (10-20); BUN (Urea Nitrogen) 48 mg/dL (9.8-20.1); Calc. Creatinine Clearance 24 mL/min (70-130); Calcium 11.1 mg/dL (7.8-10.44); Carbon Dioxide 21 mmol/L (23-31); Chloride 105 mmol/L (98-107); Estimated GFR-MDRD 16; Glucose 109 mg/dL (83-110); Potassium 4.7 mmol/L (3.5-5.1); Sodium 134 mmol/L (136-145)
[2019-01-15 05:20] LABS: INR-International Normal Ratio 1.8
[2019-01-15] MEDS: Mometasone/Formoterol 60 PUFF AER INH SCH ×2 (05:39→21:15)
[2019-01-15] MEDS ORDERED: Furosemide 40 MG TAB PO SCH (09:00)
[2019-01-15] MEDS ORDERED: Furosemide 20 MG/2 ML VIAL SLOW IVP SCH (09:00)
[2019-01-15] MEDS: NPH, Human Insulin Isophane 300 UNIT/3 ML VIAL SC SCH ×2 (09:02→18:36)
[2019-01-15] MEDS: Spironolactone 25 MG TAB PO SCH (09:04)
[2019-01-15] MEDS: Potassium Chloride 20 MEQ TAB PO SCH (09:05)
[2019-01-15] MEDS: Famotidine 20 MG TAB PO SCH (09:06)
[2019-01-15] MEDS: Furosemide 40 MG/4 ML VIAL SLOW IVP SCH ×2 (09:15→14:23)
[2019-01-15] MEDS: Warfarin Sodium 2.5 MG TAB PO SCH ×2 (17:08→17:09)
[2019-01-15] MEDS: cefTRIAXone\\ROCEPHIN 1 GM in Sodium Chloride 0.9% 100 ML IVPB SCH (18:49)
--- NOTE | 2019-01-15 20:54 | RAD ---
PORTABLE CHEST: Date: 01-15-19 An AP portable film at 0642 is compared with a 01-13-19 study. FINDINGS: Vascular congestion seems slightly worse than it was before. The cardiac size is about the same. Ther e are no large effusions but there may be a small one on the left. IMPRESSION: Vascular congestion slightly worse today than previously. Preliminary report taken to Nurse's Station at approximately 0825 hours. POS: HOME
[2019-01-15] MEDS: diphenhydrAMINE 25 MG CAP PO SCH (21:14)
[2019-01-15 21:22] LABS: Vancomycin, Trough 13.1 ug/mL
[2019-01-15] MEDS: Vancomycin HCl 500 MG in Sodium Chloride 0.9% 100 ML IVPB SCH (22:31)
[2019-01-16] MEDS: Ipratropium Bromide 2.5 ml Neb NEB SCH ×4 (00:44→18:20)
[2019-01-16 05:42] LABS: Prothrombin Time 18.8 SEC (12.0-14.7)
[2019-01-16 05:43] LABS: Anion Gap 12 mmol/L (10-20); BUN (Urea Nitrogen) 47 mg/dL (9.8-20.1); Calc. Creatinine Clearance 25 mL/min (70-130); Calcium 11.3 mg/dL (7.8-10.44); Carbon Dioxide 21 mmol/L (23-31); Chloride 106 mmol/L (98-107); Estimated GFR-MDRD 17; Glucose 103 mg/dL (83-110); INR-International Normal Ratio 1.6; Potassium 4.6 mmol/L (3.5-5.1); Sodium 134 mmol/L (136-145)
[2019-01-16] MEDS: Mometasone/Formoterol 60 PUFF AER INH SCH ×2 (06:05→18:22)
[2019-01-16] MEDS ORDERED: Metolazone 5 MG TAB PO SCH (08:30)
[2019-01-16] MEDS: NPH, Human Insulin Isophane 300 UNIT/3 ML VIAL SC SCH ×2 (08:45→18:22)
[2019-01-16] MEDS: Furosemide 40 MG/4 ML VIAL SLOW IVP SCH ×2 (08:46→14:13)
[2019-01-16] MEDS: Potassium Chloride 20 MEQ TAB PO SCH (08:46)
[2019-01-16] MEDS: Famotidine 20 MG TAB PO SCH (08:47)
[2019-01-16] MEDS: Spironolactone 25 MG TAB PO SCH (08:47)
[2019-01-16] MEDS: cefTRIAXone\\ROCEPHIN 1 GM in Sodium Chloride 0.9% 100 ML IVPB SCH (17:26)
[2019-01-16] MEDS: Warfarin Sodium 2.5 MG TAB PO SCH (17:28)
[2019-01-16] MEDS: Calcitriol 0.25 MCG CAP PO SCH (17:28)
[2019-01-16] MEDS: diphenhydrAMINE 25 MG CAP PO SCH (21:18)
[2019-01-16] MEDS: Vancomycin HCl 500 MG in Sodium Chloride 0.9% 100 ML IVPB SCH (22:39)
[2019-01-17] MEDS: Ipratropium Bromide 2.5 ml Neb NEB SCH ×2 (00:50→17:29)
[2019-01-17 05:30] LABS: #Basophils 0.1 thou/uL (0.0-0.2); #Eosinphils 0.6 thou/uL (0.0-0.7); #Lymphocytes 1.3 thou/uL (1.20-3.40); #Monocytes 0.7 thou/uL (0.11-0.59); #Neutrophils 3.8 thou/uL (1.40-6.50); %Basophils 1.8 % (0.0-1.0); %Eosinophils 8.7 % (0.0-10.0); %Lymphocytes 19.9 % (21.0-51.0); %Monocytes 11.3 % (0.0-10.0); %Neutrophils 58.3 % (42.0-75.0); Hemoglobin 10.4 g/dL (12.0-16.0); Mean Corpuscular HGB CONC 31.3 g/dL (32.0-36.0); Mean Corpuscular Hemoglobin 28.8 pg (27.0-31.0); Mean Corpuscular Volume 92.2 fL (78.0-98.0); Mean Platelet Volume 7.6 fL (7.4-10.4); Platelet Count 144 thou/uL (130-400); RBC Distribution Width 13.7 % (11.5-14.5); White Blood Cell (WBC) Count 6.6 thou/uL (4.8-10.8)
[2019-01-17 05:34] VITALS: BP 111/58; TEMP 98.8
[2019-01-17 05:39] LABS: Anion Gap 14 mmol/L (10-20); BUN (Urea Nitrogen) 46 mg/dL (9.8-20.1); Calc. Creatinine Clearance 24 mL/min (70-130); Calcium 11.5 mg/dL (7.8-10.44); Carbon Dioxide 20 mmol/L (23-31); Chloride 106 mmol/L (98-107); Estimated GFR-MDRD 16; Glucose 118 mg/dL (83-110); Potassium 4.8 mmol/L (3.5-5.1); Sodium 135 mmol/L (136-145)
[2019-01-17 05:41] LABS: INR-International Normal Ratio 1.6; Prothrombin Time 18.8 SEC (12.0-14.7)
[2019-01-17 06:11] VITALS: BMI 31.3
[2019-01-17] MEDS: Mometasone/Formoterol 60 PUFF AER INH SCH (06:35)
[2019-01-17] MEDS: Spironolactone 25 MG TAB PO SCH (09:38)
[2019-01-17] MEDS: Famotidine 20 MG TAB PO SCH (09:39)
[2019-01-17] MEDS: Potassium Chloride 20 MEQ TAB PO SCH (09:39)
[2019-01-17] MEDS: NPH, Human Insulin Isophane 300 UNIT/3 ML VIAL SC SCH ×2 (09:42→17:30)
[2019-01-17] MEDS: Furosemide 40 MG/4 ML VIAL SLOW IVP SCH ×2 (09:45→17:29)
--- NOTE | 2019-01-17 10:59 | RAD ---
PORTABLE CHEST: HISTORY: Respiratory distress. COMPARISON: 01/15/2019 FINDINGS: Heart size is enlarged. A pacemaker is present. There is a dilated main pulmonary artery segment pr esent and a prominent central hilar region, suggesting underlying pulmonary artery hypertension. Int erstitial lung changes are stable and probably related to chronic change. IMPRESSION: Cardiomegaly. Evidence for pulmonary artery hypertension. Increased interstitial markings, probably largely chronic in nature but could indicate some element of edema. POS: [facility]
[2019-01-17] MEDS ORDERED: Warfarin Sodium 3 MG TAB PO SCH (17:00)
--- NOTE | 2019-01-18 05:37 | DIS ---
DATE OF ADMISSION: 01/11/2019 DATE OF DISCHARGE: 01/17/2019 ADMISSION DIAGNOSES: 1. Bilateral lower extremity cellulitis. 2. Acute on chronic diastolic congestive heart failure. 3. Chronic kidney disease stage 4. 4. Insulin-dependent diabetes mellitus. 5. Physical deconditioning. 6. Status post aortic valve replacement. 7. Supratherapeutic INR. DISCHARGE DIAGNOSES: 1. Bilateral lower extremity cellulitis. 2. Acute on chronic diastolic congestive heart failure. 3. Chronic kidney disease stage 4. 4. Insulin-dependent diabetes. 5. Physical deconditioning. 6. Status post aortic valve replacement. 7. Subtherapeutic INR. PROCEDURES: 1. Blood culture x2, no growth at 5 days. 2. Chest x-ray from the day of admission showing mild vascular congestion. 3. Chest x-ray from January 13 showing pulmonary edema that is stable. 4. Chest x-ray from January 15 showing vascular congestion, slightly worse than previous. 5. Chest x-ray from the date of discharge showing cardiomegaly and evidence for pulmonary artery hypertension with increased interstitial markings, probably largely cardiac in nature, but could indicate some element of edema. HISTORY AND PHYSICAL: Please see dictated report from the day of admission. HOSPITAL COURSE: Ms. Monet is a 79-year-old female with past medical history of diastolic congestive heart failure with last known ejection fraction that was preserved in 2017, chronic kidney disease stage 4, followed by Dr. Flanagan, insulin-dependent diabetes mellitus, physical deconditioning with chronic wheelchair bound status, and history of aortic valve replacement on chronic anticoagulation, who failed outpatient antibiotic therapy for bilateral lower extremity cellulitis in the context of worsening bilateral lower extremity edema. For the patient's bilateral lower extremity cellulitis, she had already received 1 g of Rocephin in the outpatient setting as well as Keflex. She was continued on Rocephin during her hospital admission and vancomycin was added for coverage of MRSA. The patient had no leukocytosis and her blood cultures were negative throughout her hospitalization. The erythema improved as the edema improved in her lower extremities to what appeared to be now chronic venous stasis changes. She has been afebrile throughout her entire admission and her lower extremity pain has improved. We did get a wound care evaluation performed, who recommended warm moist compresses to the area 2 to 3 times per day. This was then discontinued on the day prior to her discharge as the wounds and weeping have improved. At discharge, the patient will be resuming Keflex and we are going to add clindamycin for oral and outpatient MRSA coverage to be continued. The patient with a history of diastolic congestive heart failure. Her last known ejection fraction that I have on file was from 2017 and was preserved at 60%. However, she is a patient of Dr. Bass, who is with [facility], and he had planned to do an updated echocardiogram in early 2019. I do not have that study if it was performed. Nevertheless, the patient appeared to be fluid overloaded on admission with evidence of mild pulmonary vascular congestion on her chest x-ray. She was given IV Lasix for diuresis gently secondary to her chronic kidney disease which is stage IV and had very little diuresis with that. At one point, she was transitioned back to her oral regimen and continued to have a weight gain. However, on the day prior to her discharge, I did add Zaroxolyn 5 mg dose and she was able to diurese more efficiently with that and lost a couple of pounds that she had gained during her admission. She has no pulmonary manifestations of acute heart failure as her lungs are clear and she has no shortness of breath and has no increase in her cough, which she has chronically due to her comorbidity of COPD. She will be continued on her home dose of Lasix, potassium, spironolactone, and her metolazone will be scheduled 3 times per week. I will check a metabolic profile in approximately one week to make sure that she is not getting too dry with that. She is limited to 1500 mL of fluid per day orally. She is to weigh daily and they are to notify for 3 pounds or more weight gain in 24 hours or 5 pounds or more weight gain in one week for further instructions. Chronic kidney disease stage 4. The patient's creatinine on admission was 2.93 and this had improved to 2.79 by the time of her discharge. Regarding her insulin-dependent diabetes mellitus, she was placed on her home regimen and a sliding scale and her Accu-Cheks remained stable throughout her entire hospitalization. Regarding her physical deconditioning, PT and OT evaluated the patient and she will be continuing therapy with home health as an outpatient. The patient has a history of an aortic valve replacement and chronic atrial fibrillation. She was rate controlled throughout her hospitalization. However, her INR initially upon admission was elevated at 4.4. We held her warfarin per pharmacy's instructions with this diminishing to 1.6 on the day of her discharge. Her Coumadin was resumed by Pharmacy on January 13. She will continue this at 30 mg per day and we will get an INR in approximately 1 week, either at her clinic visit or with home health. DISPOSITION: Discharged to home. CONDITION: Stable. MEDICATIONS: 1. Breo Ellipta 200/25 mcg one inhalation daily. 2. Calcitriol 0.25 mcg p.o. every other day. 3. Humalog sliding scale b.i.d. p.r.n. 4. Pepcid 20 mg p.o. b.i.d. 5. Cartia XT 120 mg p.o. b.i.d. 6. Tylenol 650 mg p.o. q.4 hours p.r.n. 7. Dulcolax 10 mg [place] q.24 hours p.r.n. 8. Docusate 100 mg p.o. b.i.d. p.r.n. 9. Lasix 80 mg p.o. daily. 10. DuoNeb 3 mL q.6 hours p.r.n. 11. Lorazepam 0.5 mg p.o. q.6 hours p.r.n. 12. Milk of magnesia 30 mL p.o. daily p.r.n. 13. Imodium 2 mg p.o. p.r.n. loose stool. 14. NPH 5 units subcu b.i.d. before meals. 15. Zofran ODT 4 mg p.o. q.6 hours p.r.n. 16. K-Dur 20 mEq one p.o. q.a.m. 17. Spironolactone 100 mg p.o. daily. 18. Spiriva Respimat two inhalations daily. 19. Diphenhydramine 25 mg p.o. q.6 hours p.r.n. allergies and q.h.s. 20. Warfarin sodium 3 mg p.o. at 1700 daily. 21. Metolazone/Zaroxolyn 5 mg p.o. three times per week on Tuesday, Tuesday, and Tuesday. 22. Clindamycin hydrochloride 300 mg p.o. t.i.d. x7 days. 23. Keflex to be resumed at home 500 mg p.o. t.i.d. for the remainder of the course. 24. Floranex one packet to food daily x10 days. Follow up with me, Dr. Tamra Hernandez, in approximately one week with a PT/INR and a basic metabolic profile. Job ID: [id number]
== END 2019-01-17 17:30 | disposition home or self-care (01) | DRG 602 ==
LOC: BURMED 15:57
PROVIDERS: ADMIT Family Medicine; ATTEND Family Medicine
DX: L03.116 Cellulitis of left lower limb (principal); I50.33 Acute on chronic diastolic (congestive) heart failure; N18.4 Chronic kidney disease, stage 4 (severe); J96.10 Chronic respiratory failure, unspecified whether with hypoxia or hypercapnia; N25.81 Secondary hyperparathyroidism of renal origin; I13.0 Hypertensive heart and chronic kidney disease with heart failure and stage 1 through stage 4 chronic kidney disease, or unspecified chronic kidney disease; Z66 Do not resuscitate; L03.115 Cellulitis of right lower limb; G47.33 Obstructive sleep apnea (adult) (pediatric); J44.9 Chronic obstructive pulmonary disease, unspecified; E11.22 Type 2 diabetes mellitus with diabetic chronic kidney disease; K21.9 Gastro-esophageal reflux disease without esophagitis; I25.10 Atherosclerotic heart disease of native coronary artery without angina pectoris; R53.81 Other malaise; I48.2 Chronic atrial fibrillation; K59.00 Constipation, unspecified; E07.89 Other specified disorders of thyroid; R79.1 Abnormal coagulation profile; D69.6 Thrombocytopenia, unspecified; Z95.4 Presence of other heart-valve replacement; Z95.0 Presence of cardiac pacemaker; Z87.891 Personal history of nicotine dependence; Z79.4 Long term (current) use of insulin; Z79.899 Other long term (current) drug therapy; Z79.01 Long term (current) use of anticoagulants
CPT/HCPCS: 36415; 36416; 71045; 80048; 80053; 80202; 83880; 85025; 85610; 87040; 94664; J0696; J1815; J1940; J3370; J7050; Q0163

== ENCOUNTER 2020-07-31 12:07 | Emergency (ER) | payer MEDICARE ==
[2020-07-31 12:59] LABS: ALT (SGPT) 9 U/L (8-55); AST (SGOT) 16 U/L (5-34); Albumin 3.4 g/dL (3.4-4.8); Alkaline Phosphatase 77 U/L (40-110); Anion Gap 19 mmol/L (10-20); BUN (Urea Nitrogen) 43 mg/dL (9.8-20.1); Bilirubin, Total 1.2 mg/dL (0.2-1.2); Calc. Creatinine Clearance 0 mL/min (70-130); Calcium 11.6 mg/dL (7.8-10.44); Carbon Dioxide 21 mmol/L (23-31); Chloride 103 mmol/L (98-107); Estimated GFR-MDRD 11; Globulin 2.8 g/dL (2.4-3.5); Glucose 114 mg/dL (83-110); Lipase 9 U/L (8-78); Potassium 5.2 mmol/L (3.5-5.1); Protein, Total 6.2 g/dL (6.0-8.3); Sodium 138 mmol/L (136-145)
[2020-07-31 13:01] LABS: #Basophils 0.1 thou/uL (0.0-0.2); #Lymphocytes 0.7 thou/uL (1.20-3.40); #Neutrophils 12.2 thou/uL (1.40-6.50); %Basophils 0.7 % (0.0-1.0); %Eosinophils 0.1 % (0.0-10.0); %Lymphocytes 4.7 % (21.0-51.0); %Monocytes 7.1 % (0.0-10.0); %Neutrophils 87.4 % (42.0-75.0); Hemoglobin 10.5 g/dL (12.0-16.0); Mean Corpuscular HGB CONC 29.7 g/dL (32.0-36.0); Mean Corpuscular Hemoglobin 27.5 pg (27.0-31.0); Mean Corpuscular Volume 92.8 fL (78.0-98.0); Mean Platelet Volume 7.6 fL (7.4-10.4); Platelet Count 108 thou/uL (130-400); RBC Distribution Width 19.8 % (11.5-14.5)
[2020-07-31 13:17] LABS: Anisocytosis SLIGHT = 6-15 cells (100X) (0-5/hpf); CKMB 1.1 ng/mL (0-6.6); Elliptocytes SLIGHT = 2-5 cells (100X) (0-1/hpf); Hypochromia SLIGHT = 6-15 cells (100X) (0-5/hpf); MDiff Complete? YES; Platelet Morphology Comment Appears Decreased; Polychromasia SLIGHT = 2-3 cells (100X) (0-2/hpf)
[2020-07-31 13:29] LABS: Bilirubin Negative (Negative); Blood, Urine Moderate (Negative); Glucose, Urine (Dipstick) Negative (Negative); Ketone, Urine Negative (Negative); Leukocyte Large (Negative); Nitrite Negative (Negative); Protein, Urine (Dipstick) 100 mg/dL (Neg-Trace); Urobilinogen 0.2 mg/dL (Less than 2); pH, Urine 8.5 (5.0-9.0)
[2020-07-31 13:37] LABS: Clarity Cloudy (Clear)
[2020-07-31 13:38] LABS: Bacteria/HPF 4+ HPF (None Seen); Other Microscopic Description C&S SET UP; Squamous Epithelial 0-3 HPF (0-3); WBC/HPF 21-50 HPF (0-3)
[2020-07-31 13:42] LABS: INR-International Normal Ratio 2.1; PTT 47.4 sec (22.9-36.1); Prothrombin Time 23.1 sec (12.0-14.7)
[2020-07-31] MEDS ORDERED: cefTRIAXone\\ROCEPHIN 2 GM VIAL ONE (14:07)
[2020-07-31] MEDS ORDERED: Sodium Chloride 0.9% 100 ML ONE (14:07)
--- NOTE | 2020-07-31 19:43 | CT ---
CT OF THE BRAIN WITHOUT CONTRAST: 07/31/20 Comparison is made with the prior study of 05/22/20. The findings are very similar showing some deep wh ite matter lucency typical of chronic ischemic change. Some of the low density areas seen in the fron marc lobes are probably a combination of chronic ischemic change, artifact from the adjacent dense bon e and angle of scanning. Small acute strokes would easily be missed in this patient, but no definite acute stroke was apprecia k[place]. There is certainly no bleeding. The ventricular sizes are normal for age and atrophy. Overall, t he appearance of the brain is similar to the prior study. IMPRESSION: Atrophy and chronic ischemic changes. If the patient exhibits signs and symptoms of stroke, an MRI wo uld be more sensitive at sorting out the deep white matter low density areas. Preliminary findings discussed with Dr. Godfrey at 1329 on 07/31/20. Code CR POS: HOME
--- NOTE | 2020-07-31 19:48 | RAD ---
PELVIS ONE VIEW: 07/31/20 No gross fractures were identified. The bony pelvis appears intact. The SI joints are symmetrical and the symphysis shows no widening or off-set. There is joint space narrowing of the right hip. There is some spotty lucencies throughout each proximal femur. Currently I am more inclined to believe the findings are spotty osteoporosis and technical in nature than an entity such as myeloma, though the l atter did occur to me. Certainly I saw no findings in the skull on the CT to make me think that. IMPRESSION: No acute traumatic findings. See comments above. POS: HOME
--- NOTE | 2020-07-31 19:52 | RAD ---
LUMBAR SPINE THREE VIEWS: 07/31/20 Lumbar rotoscoliosis convexed left is present. No definite fracture was appreciated. There are extens natacha degenerative changes throughout the entire spine. Some disc space narrowing is suggested at L2-L3 , L3-L4 and L4-L5. Due to the prominent curvature of the scoliosis, the vertebrae are seen as well as usual. Very minor wedging of T12 does not appear acute and I believe I can see this on much older [facility] x-rays. The aorta is densely calcified, as are the iliac arteries. Again noted is some spotty sourav encies throughout some of the bony pelvis and hips. See comments on pelvis film. Finally, there is an area of diffuse calcification to the right of midline that is most likely in the pancreas. Remnants of chronic pancreatitis are presumed. IMPRESSION: 1. Scoliosis with very prominent degenerative changes. 2. Severe arteriosclerosis. 3. Presumed sequela of chronic pancreatitis. 4. Some spotty lucencies in the pelvis and hips, though to be more likely osteoporosis than not. See comments on pelvis films as sometimes myeloma can present with such an appearance. POS: HOME
--- NOTE | 2020-07-31 19:55 | RAD ---
PORTABLE CHEST: 07/31/20 An AP portable film at 1346 is compared with a 05/22/20 study. Some fluid is present in the minor fissu re or alternatively this may be a strip of atelectasis as there is some streaky linear infiltrate els ewhere. I cannot exclude a minimal left basilar infiltrate. The heart is enlarged but no more so than before. The cardiac pacer remains in place. I do not believe the vessels are definitively congested at this point. IMPRESSION: Some streaking bilaterally is noted, more so in the upper lobes but there might be a little streaking in the left lower lobe as well. Scarring and/or atelectasis thought to be more likely than not. Issac driver follow-up films would be helpful. POS: HOME
== END 2020-07-31 14:57 | disposition short-term general hospital (02) ==
LOC: BURERS 12:07
DX: N39.0 Urinary tract infection, site not specified (principal); N18.4 Chronic kidney disease, stage 4 (severe); I50.9 Heart failure, unspecified; E11.22 Type 2 diabetes mellitus with diabetic chronic kidney disease; I48.91 Unspecified atrial fibrillation; F03.90 Unspecified dementia, unspecified severity, without behavioral disturbance, psychotic disturbance, mood disturbance, and anxiety; R79.89 Other specified abnormal findings of blood chemistry; R27.0 Ataxia, unspecified; E66.9 Obesity, unspecified; Z87.891 Personal history of nicotine dependence; Z79.1 Long term (current) use of non-steroidal anti-inflammatories (NSAID); Z79.01 Long term (current) use of anticoagulants; Z79.4 Long term (current) use of insulin; Z79.899 Other long term (current) drug therapy
CPT/HCPCS: 51701; 70450; 71045; 72100; 72170; 80053; 81003; 81015; 82553; 83605; 83690; 83880; 84443; 84484; 85025; 85610; 85730; 87040; 87077; 87086; 87186; 93005; 94760; 96365; 96375; J0696; J3370; J3490